=== PATIENT | female | born 1945 | race Caucasian/White ===

== ENCOUNTER 2017-12-12 18:50 | Inpatient (IN) | payer OTHER ==
[~2017-12-12] VITALS: Ht 162.6 cm; Wt 79.6 kg
[~2017-12-12 18:50] MED LIST: ACETAMINOPHEN650 M5 PO; ASPIRIN EC81 M1 PO; ATENOLOL 50 MG50 M1 PO; COUMADIN 5 MG TA5 M1 PO; DICLOFENAC SODI75 M1 PO; DILTIAZEM 24HR240 M1 PO; FISH OIL + D31 EACH PO; FOLGARD TABLET1 EAC1 PO; KCL PO; LASIX 20 MG TAB20 MG PO; LISINOPRIL5 MG PO; SIMVASTATIN10 MG
[2017-12-12 18:51] VITALS: BP 118/51
[2017-12-12] MEDS ORDERED: TOPROL XL25 MG PO (18:58)
[2017-12-12] MEDS ORDERED: ANTIDEPRESSANT (19:02)
[2017-12-12] MEDS ORDERED: LEXAPRO 10 MG T10 MG PO (19:14)
[2017-12-12 19:27] LABS: ABSOLUTE BASOPHILS 0.1 thou/uL (0.0-0.2); ABSOLUTE EOSINOPHILS 0.2 thou/uL (0.0-0.7); ABSOLUTE LYMPHOCYTES 1.9 thou/uL (0.8-5.3); ABSOLUTE MONOCYTES 0.9 thou/uL (0.0-1.2); ABSOLUTE NEUTROPHILS 5.6 thou/uL (1.6-8.1); EOSINOPHILS 2.3 %; HEMOGLOBIN 13.9 gm/dL (12.0-15.0); LYMPHOCYTES 21.9 %; MCH 30.9 pg (26.0-34.0); MCHC 33.1 g/dL (28.0-37.0); MCV 93.3 fL (80.0-100.0); MONOCYTES 10.7 %; MPV 10.8 fl. (7.2-11.1); NUCLEATED RBCS 0 /100WBC; PLATELET COUNT* 154 thou/uL (150-400); POLYS 64.1 %; RBC 4.51 mil/uL (4.20-5.00); RDW-CV 14.4 % (10.5-14.5); WBC 8.7 thou/uL (4.0-11.0)
[2017-12-12 19:33] LABS: CALCIUM 9.1 mg/dL (8.5-10.1); POTASSIUM 3.6 mmol/L (3.5-5.1)
[2017-12-12 19:34] LABS: INR 3.3; PROTIME 31.5 Seconds (9.20-11.50)
[2017-12-12 21:06] VITALS: BP 124/71
[2017-12-12 21:30] VITALS: BP 129/63
[2017-12-13] MEDS ORDERED: LASIX 20 MG TAB20 MG PO (01:16)
[2017-12-13] MEDS ORDERED: COUMADIN 1MG TAB1 M1 PO (01:17)
[2017-12-13 04:42] LABS: MCH 31.2 pg (26.0-34.0); MCHC 33.4 g/dL (28.0-37.0); MCV 93.4 fL (80.0-100.0); MPV 11.3 fl. (7.2-11.1); RBC 4.18 mil/uL (4.20-5.00); RDW-CV 14.6 % (10.5-14.5); WBC 14.2 thou/uL (4.0-11.0)
[2017-12-13 04:46] LABS: INR 3.2; PROTIME 30.4 Seconds (9.20-11.50)
[2017-12-13 09:06] VITALS: BP 124/62
--- NOTE | 2017-12-13 13:52 | EKG ---
[place] [address] ELECTROCARDIOGRAM REPORT Name: JOHN HYDETINA Roc Room: [address] ADM IN .R.#: [id number] Admission: 12/12/17 Attend Phys: Bertha Bland Discharge: Date of : 43 Report #: [id number] THIS REPORT FOR: //name// [facility] ED Test Date: 2017-12-12 Test Time: 19:45:01 Pat Name: OUSMANE HYDE Department: Room: [facility] Gender: F Sodium Chlorite Operator: : 1945 Requested By: Mckinley Norton Order Number: [id number] MD: Selvin Roberts Measurements Intervals [place] Rate: 82 P: MT: QRS: 45 QRSD: 94 T: 3 QT: 396 QTc: 463 Interpretive Statements Atrial fibrillation Low voltage, precordial leads Compared to ECG 02/17/2013 08:30:15 no change Electronically Signed On 12-13-2017 13:52:29 CDT by Selvin Roberts [email or web address] <ELECTRONICALLY SIGNED> By: Selvin Roberts MD, [facility] 12/13/17 1352 44 44 Selvin Roberts MD, FAC /EPI
[2017-12-13 15:04] LABS: INR 3.4; PROTIME 32.1 Seconds (9.20-11.50)
[2017-12-13 15:12] LABS: URINE BILIRUBIN NEGATIVE (Negative); URINE BLOOD NEGATIVE (Negative); URINE CLARITY CLEAR; URINE COLOR YELLOW; URINE GLUCOSE-RANDOM NEGATIVE (Negative); URINE KETONES NEGATIVE (Negative); URINE LEUKOCYTES NEGATIVE (Negative); URINE NITRITE NEGATIVE (Negative); URINE PROTEIN NEGATIVE (Negative); URINE UROBILINOGEN 0.2 E.U./dl (0.2-1.0)
[2017-12-13 15:59] VITALS: BP 127/77
[2017-12-13 20:00] VITALS: BP 137/80
[2017-12-14] VITALS (9 sets, daily range): BP systolic 89–132; BP diastolic 40–75
[2017-12-14 04:22] LABS: ABSOLUTE BASOPHILS 0.1 thou/uL (0.0-0.2); ABSOLUTE LYMPHOCYTES 1.3 thou/uL (0.8-5.3); ABSOLUTE MONOCYTES 1.5 thou/uL (0.0-1.2); ABSOLUTE NEUTROPHILS 9.1 thou/uL (1.6-8.1); BASOPHILS 0.4 %; EOSINOPHILS 0.3 %; HEMATOCRIT 36.5 % (37.0-47.0); HEMOGLOBIN 12.3 gm/dL (12.0-15.0); LYMPHOCYTES 11.2 %; MCH 31.5 pg (26.0-34.0); MCHC 33.8 g/dL (28.0-37.0); MCV 93.1 fL (80.0-100.0); MONOCYTES 12.8 %; MPV 10.9 fl. (7.2-11.1); NUCLEATED RBCS 0 /100WBC; PLATELET COUNT* 136 thou/uL (150-400); POLYS 75.3 %; RBC 3.92 mil/uL (4.20-5.00); RDW-CV 14.7 % (10.5-14.5)
[2017-12-14 04:23] LABS: PROTIME 28.9 Seconds (9.20-11.50)
[2017-12-14 04:46] LABS: CALCIUM 8.2 mg/dL (8.5-10.1); CREATININE 0.8 mg/dL (0.6-1.3); POTASSIUM 3.6 mmol/L (3.5-5.1)
[2017-12-14 07:23] LABS: INR 1.7; PROTIME 16.8 Seconds (9.20-11.50)
[2017-12-14 13:19] LABS: INR 1.8; PROTIME 17.4 Seconds (9.20-11.50)
[2017-12-14 15:58] LABS: HEMATOCRIT 31.6 % (37.0-47.0); HEMOGLOBIN 10.6 gm/dL (12.0-15.0)
[2017-12-15] VITALS (13 sets, daily range): BP systolic 82–118; BP diastolic 38–63
[2017-12-15 03:55] LABS: HEMATOCRIT 25.2 % (37.0-47.0)
[2017-12-15 04:05] LABS: INR 1.8; PROTIME 17.4 Seconds (9.20-11.50)
[2017-12-15 04:06] LABS: HEMOGLOBIN 8.3 gm/dL (12.0-15.0)
[2017-12-15 08:19] LABS: CALCIUM 7.9 mg/dL (8.5-10.1); CREATININE 0.8 mg/dL (0.6-1.3)
[2017-12-15 17:07] LABS: HEMATOCRIT 22.4 % (37.0-47.0); HEMOGLOBIN 7.5 gm/dL (12.0-15.0)
[2017-12-15 23:43] LABS: HEMATOCRIT 23.5 % (37.0-47.0)
[2017-12-16] VITALS: BP 119/64; BP 97/46
[2017-12-16 04:36] LABS: HEMATOCRIT 23.6 % (37.0-47.0); HEMOGLOBIN 7.9 gm/dL (12.0-15.0); MCH 31.7 pg (26.0-34.0); MCHC 33.6 g/dL (28.0-37.0); MCV 94.5 fL (80.0-100.0); MPV 11.1 fl. (7.2-11.1); NUCLEATED RBCS 0 /100WBC; PLATELET COUNT* 109 thou/uL (150-400); RDW-CV 13.9 % (10.5-14.5)
[2017-12-16 04:40] VITALS: BP 109/54
[2017-12-16 04:54] LABS: INR 1.3; PROTIME 12.9 Seconds (9.20-11.50)
[2017-12-16 05:22] LABS: ALBUMIN 2.2 g/dL (3.4-5.0); CALCIUM 7.8 mg/dL (8.5-10.1); CREATININE 0.8 mg/dL (0.6-1.3); POTASSIUM 3.8 mmol/L (3.5-5.1); TOTAL BILIRUBIN 0.9 mg/dL (<0.1-1.0); TOTAL PROTEIN 5.1 g/dL (6.4-8.2)
[2017-12-16 06:34] LABS: ABSOLUTE EOSINOPHILS 0.1 thou/uL (0.0-0.7); ABSOLUTE LYMPHOCYTES 0.5 thou/uL (0.8-5.3); ABSOLUTE MONOCYTES 0.2 thou/uL (0.0-1.2); ABSOLUTE NEUTROPHILS 11.2 thou/uL (1.6-8.1); METAMYELOCYTES 1 %
[2017-12-16 06:35] LABS: ANISOCYTOSIS 1+; PLATELET ESTIMATE ADEQUATE
[2017-12-16 08:00] VITALS: BP 93/46
[2017-12-16 11:07] VITALS: BP 100/37; BP 103/61; BP 104/59; BP 106/58
--- NOTE | 2017-12-16 17:50 | CON ---
[address] [address] CONSULTATION Name: BARRETTOUSMANE Brian Room: [address] IN M.R.#: [id number] Admission: 12/12/17 Attend Phys: Bertha Bland Discharge: Date of : 43 Report #: [id number] THIS REPORT FOR: //name// CC: Pam Mercer DATE OF SERVICE: 12/13/2017 HISTORY OF PRESENT ILLNESS: The patient is a 71-year-old white female who I was asked to see in the hospital today because of atrial fibrillation. The history is obtained from the patient as well as some old records. The patient presented several years ago with shortness of breath. She was found to be in atrial fibrillation. She was seen at that time by Dr. Helms. Echocardiogram showed ejection fraction of 55% with a dilated left atrium, moderate mitral regurgitation, evidence of pulmonary hypertension and mild aortic insufficiency. She underwent a stress test that suggested apical ischemia. Dr. Helms recommended heart catheterization that was performed in 12/2012. She actually underwent a right and left heart catheterization. Results showed left ventricular end diastolic pressure of 20. Pulmonary pressure is 44. Ejection fraction of 50%, moderate mitral regurgitation. No evidence of mitral stenosis. Coronary angiography showed normal coronary arteries. She was felt to have persistent atrial fibrillation recommended rate control and chronic anticoagulation with warfarin. The patient has been followed by my partner, Dr. Peng since that time. She last saw Dr. Peng in July 2017 when she was doing well. She does not exercise on a regular basis. However, the patient denies recent chest pain, shortness of breath, palpitations, syncope, bleeding. She does have her INR checked frequently. The patient was doing well until yesterday, she was home in her kitchen when she tripped over her cat. She then felt pain in the right hip. Ambulance brought her here to [place], she was found to have a right hip fracture. She is now scheduled for hip surgery. I was asked to see her for preop evaluation. PAST MEDICAL HISTORY: Otherwise, significant for bilateral knee surgery, tonsillectomy, tubal ligation. She has a history of hypertension and hyperlipidemia. She apparently had screening in my office last summer that showed mild carotid plaque. CURRENT MEDICATIONS: Include Lasix for occasional edema, metoprolol, potassium, simvastatin, and warfarin. ALLERGIES: SHE HAS A PREVIOUS INTOLERANCE TO CONTRAST. FAMILY HISTORY: Her grandfather had a heart attack. SOCIAL HISTORY: She is . She [place] [address] CONSULTATION Name: OUSMANE HYDE Room: [address] IN .R.#: [id number] Admission: 12/12/17 Attend Phys: Bertha Bland Discharge: Date of : 43 Report #: [id number] No smoking. Rarely drinks alcohol. REVIEW OF SYSTEMS: She has had no history of stroke, asthma, peptic ulcer disease, liver disease, kidney disease, cancer, psychiatric illness, chronic skin condition. PHYSICAL EXAMINATION: GENERAL: Revealed an elderly female, lying in bed. She appeared in no distress. VITAL SIGNS: She had a blood pressure of 120/70, pulse was 80, she was afebrile. HEENT: She was anicteric, conjunctiva pink. Mucous membranes were moist. NECK: Veins nondistended. No carotid bruits. Neck was supple. CHEST: Clear to auscultation. CARDIOVASCULAR: Irregular rhythm. No significant murmur. ABDOMEN: Soft, nontender. EXTREMITIES: Had no edema. Dorsalis pedis pulse cannot be palpated. SKIN: Cool and dry. NEUROLOGIC: Nonfocal. Her ECG done yesterday shows atrial fibrillation, controlled ventricular response rate, poor R-wave progression. Her workup yesterday, she had portable chest x-ray in the Emergency Room that showed normal heart size, few granulomas. CT scan of the head without contrast showed only atrophy, microvascular changes. LABORATORY DATA: Sodium 141, potassium 3.6, creatinine 1.0, glucose 115. Troponin 0.06. White blood cell count 14.2, hemoglobin 13.0. IMPRESSION AND RECOMMENDATIONS: 1. Permanent atrial fibrillation. Rate controlled with a beta leti. I would hold anticoagulation at this time. Her INR on admission yesterday was 3.3. 2. Hypertension. The patient has been on a beta leti. 3. Hyperlipidemia. The patient is on a statin drug. 4. Mild carotid plaque. Recommend repeat Doppler next year. 5. Hip fracture. The patient is scheduled for surgery. The patient has no cardiac contraindication to surgery. She will need to await normalization of her INR prior to surgery. I would then resume warfarin as soon as possible after the surgery to prevent thromboembolic events from her permanent atrial fibrillation. <ELECTRONICALLY SIGNED> By: Selvin Roberts MD, FACC 12/16/17 1750 1036 [id number] Roberts MD, FACC /nt
[2017-12-16 20:50] VITALS: BP 120/58
[2017-12-17 00:31] VITALS: BP 119/64
[2017-12-17 04:00] VITALS: BP 93/49
[2017-12-17 04:45] LABS: INR 1.2; PROTIME 11.6 Seconds (9.20-11.50)
[2017-12-17 04:54] LABS: ABSOLUTE EOSINOPHILS 0.2 thou/uL (0.0-0.7); ABSOLUTE LYMPHOCYTES 1.5 thou/uL (0.8-5.3); ABSOLUTE MONOCYTES 1.7 thou/uL (0.0-1.2); ABSOLUTE NEUTROPHILS 9.5 thou/uL (1.6-8.1); BASOPHILS 0.3 %; EOSINOPHILS 1.6 %; HEMATOCRIT 24.5 % (37.0-47.0); HEMOGLOBIN 8.3 gm/dL (12.0-15.0); LYMPHOCYTES 11.8 %; MCH 31.5 pg (26.0-34.0); MCHC 33.8 g/dL (28.0-37.0); MCV 93.3 fL (80.0-100.0); MONOCYTES 13.4 %; MPV 11.7 fl. (7.2-11.1); NUCLEATED RBCS 0 /100WBC; PLATELET COUNT* 136 thou/uL (150-400); POLYS 72.9 %; RBC 2.63 mil/uL (4.20-5.00); RDW-CV 14.7 % (10.5-14.5)
[2017-12-17 05:11] LABS: ALBUMIN 2.1 g/dL (3.4-5.0); CALCIUM 7.8 mg/dL (8.5-10.1); CREATININE 0.8 mg/dL (0.6-1.3); POTASSIUM 4.5 mmol/L (3.5-5.1); TOTAL BILIRUBIN 0.7 mg/dL (<0.1-1.0); TOTAL PROTEIN 5.1 g/dL (6.4-8.2)
[2017-12-17 08:40] VITALS: BP 95/55
[2017-12-17] MEDS ORDERED: LOVENOX40 MG/0.4 SUBQ (08:48)
[2017-12-17] MEDS ORDERED: MILK OF MA400 MG/5 M PO (08:49)
[2017-12-17] MEDS ORDERED: MIRALAX17 GM PO (08:55)
[2017-12-17] MEDS ORDERED: OXYCODONE HCL5 MG PO (08:56)
[2017-12-17 16:12] VITALS: BP 99/63
[2017-12-18 00:46] VITALS: BP 115/58
[2017-12-18 04:05] LABS: INR 1.2; PROTIME 11.8 Seconds (9.20-11.50)
[2017-12-18 04:39] VITALS: BP 115/64
[2017-12-18 08:14] VITALS: BP 128/59
[2017-12-18 13:53] VITALS: BP 93/48
[2017-12-18 16:07] VITALS: BP 121/43
[2017-12-18 20:00] VITALS: BP 114/59
[2017-12-19 04:00] VITALS: BP 111/55
[2017-12-19 04:52] LABS: INR 1.5; PROTIME 14.9 Seconds (9.20-11.50)
[2017-12-19 05:02] LABS: ABSOLUTE BASOPHILS 0.1 thou/uL (0.0-0.2); ABSOLUTE EOSINOPHILS 0.2 thou/uL (0.0-0.7); ABSOLUTE LYMPHOCYTES 1.9 thou/uL (0.8-5.3); ABSOLUTE MONOCYTES 1.4 thou/uL (0.0-1.2); ABSOLUTE NEUTROPHILS 7.8 thou/uL (1.6-8.1); BASOPHILS 0.8 %; HEMATOCRIT 24.9 % (37.0-47.0); HEMOGLOBIN 8.4 gm/dL (12.0-15.0); LYMPHOCYTES 16.9 %; MCH 31.4 pg (26.0-34.0); MCHC 33.7 g/dL (28.0-37.0); MCV 93.2 fL (80.0-100.0); MPV 10.9 fl. (7.2-11.1); NUCLEATED RBCS 2 /100WBC; POLYS 68.3 %; RBC 2.67 mil/uL (4.20-5.00); RDW-CV 14.7 % (10.5-14.5); WBC 11.4 thou/uL (4.0-11.0)
[2017-12-19 05:08] LABS: PLATELET COUNT* 232 thou/uL (150-400)
[2017-12-19 05:11] LABS: ALBUMIN 2.2 g/dL (3.4-5.0); CREATININE 0.7 mg/dL (0.6-1.3); POTASSIUM 4.4 mmol/L (3.5-5.1); TOTAL PROTEIN 4.9 g/dL (6.4-8.2)
[2017-12-19 08:30] VITALS: BP 124/41
[2017-12-19 16:03] VITALS: BP 104/52
[2017-12-19 20:00] VITALS: BP 115/53
[2017-12-20 04:35] LABS: INR 2.1; PROTIME 20.7 Seconds (9.20-11.50)
[2017-12-20 08:28] VITALS: BP 103/64
[2017-12-20 13:48] VITALS: BP 103/64
[2017-12-20] MEDS ORDERED: DIGOXIN125 MCG PO (14:03)
--- NOTE | 2017-12-23 15:04 | CON ---
[address] [address] CONSULTATION Name: OUSMANE HYDE Room: [address] IN .R.#: [id number] Admission: 12/12/17 Attend Phys: Bertha Bland Discharge: 12/20/17 Date of : 43 Report #: [id number] THIS REPORT FOR: //name// CC: Pam Mercer REASON FOR CONSULTATION: Evaluation and recommendations regarding post-acute rehabilitation. HISTORY OF PRESENT ILLNESS: This is a 71-year-old female who had a fall from sustaining a hip fracture, no loss of consciousness, presented with intractable pain, was evaluated. Orthopedic Surgery was consulted and she was found to have a comminuted right intertrochanteric hip fracture. She does have a history of atrial fibrillation on Coumadin with a stable INR. She is status post cephalomedullary nail fixing with a right hip fracture on 12/14/2017 in the postoperative period. She has seen occupational therapy and her bed mobility is dependent and her bathing is minimum assistance. She is in physical therapy and she has been max assist of 2. She has ambulated 3-4 feet. She was previously independent with all activities of daily living. She has 6 steps to enter her house and 5 steps to enter the second floor where she has a bedroom with a bathroom. PAST MEDICAL HISTORY: Knee replacement in 2003, exploratory chest surgery, hypertension, congestive heart failure, atrial fibrillation and tubal ligation. MEDICATIONS: Reviewed and are available in the MAR. SIGNIFICANT FAMILY HISTORY: Heart disease. SOCIAL HISTORY: No tobacco, alcohol or recreational drug use. REVIEW OF SYSTEMS: A 14-point review of systems is done and is negative except as mentioned in HPI, specifically no fever, chest pain, shortness of breath, abdominal pain or distention. PHYSICAL EXAMINATION: GENERAL: Alert, oriented, in no apparent distress. VITAL SIGNS: Reviewed and are stable. HEENT: Head: Atraumatic, normocephalic. Pupils equal, round, reactive. ABDOMEN: Soft, nontender, nondistended. NEUROLOGIC: Cranial nerves 2 through 12 are grossly intact with no focal neuro deficit, 5/5 strength in the bilateral upper and lower extremities. SKIN: Warm and dry. No rashes or lesions noted. ASSESSMENT: 1. Status post right hip fracture with cephalomedullary nailing. 2. Alterations in activities of daily living [place] [address] CONSULTATION Name: JOHN HYDEKATHE Brian Room: [address]#: [id number] Admission: 12/12/17 Attend Phys: Bertha Bland Discharge: 12/20/17 Date of : 43 Report #: [id number] level of function. 3. Multiple medical comorbidities including atrial fibrillation with chronic anticoagulation. PLAN: 1. Continue with physical and occupational therapy. 2. Recommend potential acute inpatient rehabilitation due to her level of debility in the postoperative period. 3. We will follow her daily until her discharge with further recommendations as needed. <ELECTRONICALLY SIGNED> By: Elida Abraham DO 12/23/17 1504 1313 [id number] Abraham DO /nt
--- NOTE | 2018-01-09 11:54 | OP ---
[address] [address] OPERATIVE REPORT Name: OUSMANE HYDE Room: [address]#: [id number] Admission: 12/12/17 Attend Phys: Bertha Bland Discharge: 12/20/17 Date of : 43 Report #: [id number] THIS REPORT FOR: //name// CC: Pam Mercer DICTATED BY: Joel Cervantes PREOPERATIVE DIAGNOSIS: Right intertrochanteric hip fracture. POSTOPERATIVE DIAGNOSIS: Right intertrochanteric hip fracture. PROCEDURE: Cephalomedullary nail fixation of right hip fracture. SURGEON: Sonido Roman DO OPERATIONS ANALYST: Erick Andrade DO SECOND ASSIST: Joel Cervantes DO ANESTHESIA: General. ESTIMATED BLOOD LOSS: 100 mL. PREOP ANTIBIOTICS: 2 grams Ancef IV prior to incision. SPECIMENS: None. DRAINS: None. COMPLICATIONS: None. CONDITION: The patient is stable to PACU. IMPLANTS: [place] long gamma nail measuring 11 x 380 mm in length, 125 degree angle with a 95 mm lag screw, locking screw and a distal locking screw measuring 42.5 mm. INDICATIONS: The patient is a pleasant 71-year-old female who sustained a fall onto right side 2 days ago. She was diagnosed with a right intertrochanteric hip fracture with extension into the subtrochanteric area. Her INR was exceptionally high due to use of warfarin for atrial fibrillation and this was treated with fresh frozen plasma, which brought the INR down to an acceptable level for surgery. We recommended cephalomedullary nail fixation of the right hip fracture and we discussed the risks, benefits, complications, alternatives and indications to this including but not limited to bleeding, infection, neurovascular injury, continued pain, need for further surgery, DVT, PE and [facility] [address] [place] [address] OPERATIVE REPORT Name: BARRETTOUSMANE F Room: [address]#: [id number] Admission: 12/12/17 Attend Phys: Bertha Bland Discharge: 12/20/17 Date of : 43 Report #: [id number] inherent risks of anesthesia and she is willing to proceed. Consent is available on the chart. The patient also had a previous right total knee arthroplasty in 2000. DESCRIPTION OF PROCEDURE: The patient was seen in the preoperative holding area and the operative site initialed by surgeon. She was brought back to operative suite, placed on well-padded table in supine position. General anesthesia was induced. She was then positioned on the fracture table with the right leg in a well-padded traction boot and the left leg positioned in the Well-Leg escobar, which was well padded. Arms were secured with good padding. The right hip was sterilely prepped and draped in normal fashion. Timeout was performed in usual fashion. All in attendance were in agreement. The leg was externally rotated, pulled with traction and internally rotated for reduction maneuver. Intraoperative fluoroscopy yielded excellent reduction of the fracture. A 10 blade scalpel was used to make an incision just proximal to the greater trochanter. This was taken down through the skin and the IT band. Guide pin was then used for starting point on the greater trochanter. Intraoperative fluoroscopy was utilized for optimal starting point on the AP and lateral views. The guidewire was then advanced to the level of the lesser trochanter. Soft tissue protector was placed and an opening reamer was then utilized through the greater trochanter to the level of lesser trochanter. Guidepin was then removed and a ball tip guidewire was then advanced the full length of the femur intramedullary to the level of the superior flange of the total knee replacement. This was done under fluoroscopic guidance. The guidewire was then measured to 380 mm. Sequential reaming was then performed and the canal was reamed to a size 13 mm. The long gamma nail was then advanced over the wire to satisfactory level. The ball-tipped guidewire was then removed. Under fluoroscopic guidance, the level of the lag screw was determined and held in position. A 10 blade scalpel was then used to make a slightly distal incision for lag screw insertion through the skin and the IT band. Trocar was then advanced through the aiming arm to the level of the lateral cortex. The guidepin was then advanced under fluoroscopic guidance roughly in the center of the femoral neck on AP and lateral views. This was advanced into subchondral bone and measured. The reamer was set appropriately and the lag screw hole was reamed. A 95 mm lag screw was then advanced over the guidepin with excellent purchase. The locking bolt was then inserted through the proximal aspect of the aiming arm and the lag screw was locked into place statically. Attention was then turned to distal aspect of the nail at the level of the knee and a 10 blade scalpel was used to make incision through the skin and the IT band laterally. A drill hole was then placed through the static locking hole distally utilizing a perfect circles technique. This was measured and a 42.5 mm screw was advanced through the nail bicortically. Final x-rays were obtained showing excellent alignment of the fracture and implant. All incisions were thoroughly irrigated with normal saline and the IT band proximally was closed with a #1 Vicryl in [id number] fashion and the subcutaneous tissue closed with a 2-0 Vicryl in simple inverted interrupted fashion followed by keri on the [place] [address] OPERATIVE REPORT Name: BARRETTOUSMANE F Room: [address] IN .R.#: [id number] Admission: 12/12/17 Attend Phys: Bertha Bland Discharge: 12/20/17 Date of : 43 Report #: [id number] incisions. Dressings were placed in the form of Mepilex AG dressing, 4 x 4s, ABDs and tape. Sponge and needle counts were correct x 2. The patient was awoken and brought to PACU in a stable fashion. She tolerated the procedure well. <ELECTRONICALLY SIGNED> By: Sonido Roman DO 01/09/18 1154 1042 [id number] Roman DO /nt
== END 2017-12-20 15:09 | DRG 481 ==
LOC: M.ERS 18:50 → M.TBA-ER 20:03 → M.ORTHSURG 20:03
PROVIDERS: Emergency Medicine Emergency Medical Services; Internal Medicine; Orthopaedic Surgery; ADMIT Internal Medicine
DX: S72.141A Displaced intertrochanteric fracture of right femur, initial encounter for closed fracture (principal); R65.10 Systemic inflammatory response syndrome (SIRS) of non-infectious origin without acute organ dysfunction; I50.32 Chronic diastolic (congestive) heart failure; D62 Acute posthemorrhagic anemia; I11.0 Hypertensive heart disease with heart failure; I48.2 Chronic atrial fibrillation; E78.5 Hyperlipidemia, unspecified; I65.29 Occlusion and stenosis of unspecified carotid artery; Z79.01 Long term (current) use of anticoagulants; M19.90 Unspecified osteoarthritis, unspecified site; I95.9 Hypotension, unspecified; W18.39XA Other fall on same level, initial encounter; Y93.73 Activity, racquet and hand sports; Y92.89 Other specified places as the place of occurrence of the external cause; Y99.8 Other external cause status; Z91.041 Radiographic dye allergy status; Z82.49 Family history of ischemic heart disease and other diseases of the circulatory system; Z79.899 Other long term (current) drug therapy; Z96.653 Presence of artificial knee joint, bilateral

== ENCOUNTER 2018-01-16 11:32 | Emergency (ER) | payer OTHER ==
[~2018-01-16] VITALS: Ht 162.6 cm; Wt 78.0 kg
[~2018-01-16 11:32] MED LIST changes: +ANTIDEPRESSANT; +COUMADIN 1MG TAB1 M1 PO; +DIGOXIN125 MCG PO; +LEXAPRO 10 MG T10 MG PO; +LOVENOX40 MG/0.4 SUBQ; +MILK OF MA400 MG/5 M PO; +MIRALAX17 GM PO; +OXYCODONE HCL5 MG PO; +TOPROL XL25 MG PO
[2018-01-16] MEDS ORDERED: VOLTAREN GEL 1100 G2 TOP (11:57)
[2018-01-16] MEDS ORDERED: ULTRAM50 MG PO (11:57)
[2018-01-16 12:40] LABS: ABSOLUTE BASOPHILS 0.1 thou/uL (0.0-0.2); ABSOLUTE EOSINOPHILS 0.2 thou/uL (0.0-0.7); ABSOLUTE LYMPHOCYTES 1.2 thou/uL (0.8-5.3); ABSOLUTE MONOCYTES 1.4 thou/uL (0.0-1.2); BASOPHILS 1.1 %; EOSINOPHILS 2.5 %; HEMATOCRIT 36.9 % (37.0-47.0); HEMOGLOBIN 11.8 gm/dL (12.0-15.0); LYMPHOCYTES 11.6 %; MCH 30.1 pg (26.0-34.0); MCHC 31.9 g/dL (28.0-37.0); MCV 94.5 fL (80.0-100.0); MONOCYTES 13.9 %; MPV 10.2 fl. (7.2-11.1); NUCLEATED RBCS 0 /100WBC; PLATELET COUNT* 291 thou/uL (150-400); POLYS 70.9 %; RDW-CV 17.7 % (10.5-14.5); WBC 9.9 thou/uL (4.0-11.0)
[2018-01-16 12:47] LABS: CALCIUM 8.7 mg/dL (8.5-10.1); CREATININE 0.7 mg/dL (0.6-1.3)
[2018-01-16 12:48] LABS: INR 3.4; PROTIME 32.6 Seconds (9.20-11.50)
[2018-01-16 12:51] LABS: ALBUMIN 3.2 g/dL (3.4-5.0); TOTAL BILIRUBIN 1.3 mg/dL (<0.1-1.0); TOTAL PROTEIN 7.2 g/dL (6.4-8.2)
[2018-01-16 14:26] VITALS: BP 131/58
== END 2018-01-16 14:27 | disposition home or self-care (01) ==
LOC: M.ERS 11:32
PROVIDERS: Nurse Practitioner Family
DX: S70.01XA Contusion of right hip, initial encounter (principal); R79.1 Abnormal coagulation profile; I11.0 Hypertensive heart disease with heart failure; I50.9 Heart failure, unspecified; I48.91 Unspecified atrial fibrillation; Z91.041 Radiographic dye allergy status; Z88.7 Allergy status to serum and vaccine; Z88.8 Allergy status to other drugs, medicaments and biological substances; X58.XXXA Exposure to other specified factors, initial encounter; Y93.89 Activity, other specified; Y92.89 Other specified places as the place of occurrence of the external cause; Y99.8 Other external cause status

== ENCOUNTER → 2018-01-30 | Outpatient (CLI) | payer OTHER ==
[~2018-01-30] MED LIST changes: +AUGMENTIN 875-1 EACH PO; +BACTRIM DS TAB1 EACH PO; +CARDIZEM CD180 MG PO; +DIFLUCAN200 MG PO; +HYDROCODONE-AP1 EAC6 PO; +KLOR-CON 1010 MEQ PO; +LEVALBUTER1.25 MG/0. INH; +LOPRESSOR50 PO; +MUCINEX600 MG PO; +NYAMYC15 GM TOP; +PROTONIX40 M1 PO; +ULTRAM50 MG PO; +VOLTAREN GEL 1100 G2 TOP; +XARELTO20 MG PO
== END ==
LOC: M.WC 08:50
DX: S70.01XA Contusion of right hip, initial encounter (principal); S71.031A Puncture wound without foreign body, right hip, initial encounter; I11.0 Hypertensive heart disease with heart failure; I50.9 Heart failure, unspecified; I48.91 Unspecified atrial fibrillation; X58.XXXA Exposure to other specified factors, initial encounter; Y93.89 Activity, other specified; Y92.89 Other specified places as the place of occurrence of the external cause; Y99.8 Other external cause status

== ENCOUNTER → 2018-02-05 | Outpatient (CLI) | payer OTHER | LOC: M.WC 09:00 | DX: T81.89XD Other complications of procedures, not elsewhere classified, subsequent encounter (principal); L76.32 Postprocedural hematoma of skin and subcutaneous tissue following other procedure; I48.2 Chronic atrial fibrillation; E78.2 Mixed hyperlipidemia; M15.0 Primary generalized (osteo)arthritis; I11.0 Hypertensive heart disease with heart failure; I50.9 Heart failure, unspecified; Z68.27 Body mass index [BMI] 27.0-27.9, adult; Y83.8 Other surgical procedures as the cause of abnormal reaction of the patient, or of later complication, without mention of misadventure at the time of the procedure ==

== ENCOUNTER → 2018-02-06 | Outpatient (CLI) | payer OTHER | LOC: M.WC 11:00 | DX: T81.89XD Other complications of procedures, not elsewhere classified, subsequent encounter (principal); L76.32 Postprocedural hematoma of skin and subcutaneous tissue following other procedure; I11.0 Hypertensive heart disease with heart failure; I50.9 Heart failure, unspecified; I48.2 Chronic atrial fibrillation; E78.2 Mixed hyperlipidemia; M15.0 Primary generalized (osteo)arthritis; Z68.27 Body mass index [BMI] 27.0-27.9, adult; Z96.659 Presence of unspecified artificial knee joint; Y83.8 Other surgical procedures as the cause of abnormal reaction of the patient, or of later complication, without mention of misadventure at the time of the procedure ==

== ENCOUNTER → 2018-02-13 | Outpatient (CLI) | payer OTHER | LOC: M.WC 04:39 | DX: T81.89XD Other complications of procedures, not elsewhere classified, subsequent encounter (principal); L76.32 Postprocedural hematoma of skin and subcutaneous tissue following other procedure; I48.2 Chronic atrial fibrillation; E78.2 Mixed hyperlipidemia; M15.0 Primary generalized (osteo)arthritis; I11.0 Hypertensive heart disease with heart failure; I50.9 Heart failure, unspecified; Z68.27 Body mass index [BMI] 27.0-27.9, adult; Y83.8 Other surgical procedures as the cause of abnormal reaction of the patient, or of later complication, without mention of misadventure at the time of the procedure ==

== ENCOUNTER → 2018-02-20 | Outpatient (CLI) | payer OTHER | LOC: M.WC 00:56 | DX: T81.89XD Other complications of procedures, not elsewhere classified, subsequent encounter (principal); I11.0 Hypertensive heart disease with heart failure; I50.9 Heart failure, unspecified; I48.2 Chronic atrial fibrillation; E78.2 Mixed hyperlipidemia; L76.32 Postprocedural hematoma of skin and subcutaneous tissue following other procedure; M15.0 Primary generalized (osteo)arthritis; Z68.27 Body mass index [BMI] 27.0-27.9, adult; Y83.8 Other surgical procedures as the cause of abnormal reaction of the patient, or of later complication, without mention of misadventure at the time of the procedure ==

== ENCOUNTER → 2018-02-27 | Outpatient (CLI) | payer OTHER | LOC: M.WC 02:24 | DX: T81.89XD Other complications of procedures, not elsewhere classified, subsequent encounter (principal); I11.0 Hypertensive heart disease with heart failure; I50.9 Heart failure, unspecified; E78.2 Mixed hyperlipidemia; I48.2 Chronic atrial fibrillation; M15.0 Primary generalized (osteo)arthritis; Z96.659 Presence of unspecified artificial knee joint; Z68.27 Body mass index [BMI] 27.0-27.9, adult; Y83.8 Other surgical procedures as the cause of abnormal reaction of the patient, or of later complication, without mention of misadventure at the time of the procedure ==

== ENCOUNTER → 2018-03-03 | Outpatient (CLI) | payer OTHER | LOC: M.WC 06:29 | DX: T81.89XD Other complications of procedures, not elsewhere classified, subsequent encounter (principal); I11.0 Hypertensive heart disease with heart failure; I50.9 Heart failure, unspecified; I48.2 Chronic atrial fibrillation; L76.32 Postprocedural hematoma of skin and subcutaneous tissue following other procedure; E78.2 Mixed hyperlipidemia; M15.0 Primary generalized (osteo)arthritis; Z68.27 Body mass index [BMI] 27.0-27.9, adult; Z96.659 Presence of unspecified artificial knee joint; Y83.8 Other surgical procedures as the cause of abnormal reaction of the patient, or of later complication, without mention of misadventure at the time of the procedure ==

== ENCOUNTER 2018-03-06 15:05 | Inpatient (IN) | payer OTHER ==
[~2018-03-06] VITALS: Ht 162.6 cm; Wt 78.5 kg
[~2018-03-06 15:05] MED LIST changes: -AUGMENTIN 875-1 EACH PO; -BACTRIM DS TAB1 EACH PO; -CARDIZEM CD180 MG PO; -DIFLUCAN200 MG PO; -HYDROCODONE-AP1 EAC6 PO; -KLOR-CON 1010 MEQ PO; -LEVALBUTER1.25 MG/0. INH; -LOPRESSOR50 PO; -MUCINEX600 MG PO; -NYAMYC15 GM TOP; -PROTONIX40 M1 PO; -XARELTO20 MG PO
[2018-03-06 15:11] VITALS: BP 121/70
[2018-03-06] MEDS ORDERED: LOPRESSOR50 PO (15:19)
[2018-03-06] MEDS ORDERED: XARELTO20 MG PO (15:19)
[2018-03-06] MEDS ORDERED: BACTRIM DS TAB1 EACH PO (15:19)
[2018-03-06] MEDS ORDERED: KLOR-CON 1010 MEQ PO (15:19)
[2018-03-06 15:43] LABS: HEMATOCRIT 43.7 % (37.0-47.0); MCH 28.6 pg (26.0-34.0); MCV 89.4 fL (80.0-100.0); MPV 11.1 fl. (7.2-11.1); NUCLEATED RBCS 0 /100WBC; PLATELET COUNT* 169 thou/uL (150-400); RBC 4.89 mil/uL (4.20-5.00); RDW-CV 16.9 % (10.5-14.5); WBC 15.9 thou/uL (4.0-11.0)
[2018-03-06 15:48] LABS: INR 1.5; PROTIME 14.8 Seconds (9.20-11.50)
[2018-03-06 15:49] LABS: ANION GAP 12 mmol/L (7-16); BUN 24 mg/dL (7-18); CALCIUM 9.3 mg/dL (8.5-10.1); CHLORIDE 96 mmol/L (98-107); CO2 23 mmol/L (21-32); CREATININE 1.5 mg/dL (0.6-1.3); GLUCOSE 161 mg/dL (70-99); POTASSIUM 4.1 mmol/L (3.5-5.1); SODIUM 131 mmol/L (136-145)
[2018-03-06 15:55] LABS: ALBUMIN 3.6 g/dL (3.4-5.0); ALKALINE PHOSPHATASE 143 U/L (46-116); LIPASE 85 U/L (73-393); SGOT 116 U/L (15-37); SGPT 85 U/L (30-65); TOTAL BILIRUBIN 0.5 mg/dL (<0.1-1.0); TOTAL PROTEIN 8.4 g/dL (6.4-8.2); TROPONIN-I LEVEL <0.06 ng/mL (<0.06)
--- NOTE | 2018-03-06 16:08 | NUR ---
PHONE CALL RECEIVED FROM WOUND CARE NURSE STATES THAT PT'S CAN BE ABRUPT, GETS FUSSY, AND HAS BEEN TURNING OFF PT'S WOUND VAC AT WILL. IF WOUND CARE NURSE IS NEEDED, SHE LEAVES WORK AT 4:30. WOUND CARE NURSES NAME IS SELENA. PHYSICIAN NOTIFIED.
[2018-03-06 16:14] LABS: ABSOLUTE LYMPHOCYTES 1.1 thou/uL (0.8-5.3); ABSOLUTE MONOCYTES 0.5 thou/uL (0.0-1.2); ABSOLUTE NEUTROPHILS 14.3 thou/uL (1.6-8.1); PLATELET ESTIMATE ADEQUATE
[2018-03-06 18:04] VITALS: BP 111/51
[2018-03-06 18:59] VITALS: BP 110/72
--- NOTE | 2018-03-06 20:00 | NUR ---
ADMITTED TO ROOM AT 1845. RECEIVED REPORT AND ASSUMED CARE OF PT AT 1900. AT BEDSIDE. WOUND VAC NOTED TO RT HIP, HOME SETTINGS, DRSG DRY AND INTACT. DID NOT PHOTOGRAPH WOUND AT THIS TIME DUE TO WOUND VAC BEING ON SECURELY. C/O NAUSEA WITHOUT EMESIS BUT ASKING TO KEEP CONTAINER CLOSE BY. TELEMETRY ON SHOWING A-FIB WITH RATE INTO 130'S. SEE ADMISSION ASSESSMENT AND HX. WILL CONT TO MONITOR AND ASSIST NEEDED.
[2018-03-07] VITALS: BP 98/64
[2018-03-07 04:00] VITALS: BP 115/46
[2018-03-07 04:51] LABS: HEMATOCRIT 40.5 % (37.0-47.0); HEMOGLOBIN 13.1 gm/dL (12.0-15.0); MCH 28.7 pg (26.0-34.0); MCHC 32.2 g/dL (28.0-37.0); MCV 88.9 fL (80.0-100.0); MPV 11.1 fl. (7.2-11.1); RBC 4.56 mil/uL (4.20-5.00); RDW-CV 16.8 % (10.5-14.5); WBC 17.6 thou/uL (4.0-11.0)
[2018-03-07 05:02] LABS: ALBUMIN 3.2 g/dL (3.4-5.0); CALCIUM 8.6 mg/dL (8.5-10.1); CREATININE 1.3 mg/dL (0.6-1.3); MAGNESIUM 1.9 mg/dL (1.8-2.4); POTASSIUM 4.2 mmol/L (3.5-5.1); TOTAL BILIRUBIN 0.8 mg/dL (<0.1-1.0); TOTAL PROTEIN 6.8 g/dL (6.4-8.2)
--- NOTE | 2018-03-07 06:46 | NUR ---
AWAKE ALL NIGHT. NAUSEA CONT WITHOUT EMESIS. HAVING SM MUCOUSY GREEN STOOLS. TELEMETRY SHOWING A-FIB WITH RATE INTO 110'S. WOUND VAC FUNCTIONING. NO CHANGE IN ASSESSMENT. HS GOALS NOT ACHEIVED FOR REST AND COMFORT. HOURLY ROUNDING OBSERVED.
[2018-03-07 08:00] VITALS: BP 96/62
[2018-03-07 12:00] VITALS: BP 109/65
--- NOTE | 2018-03-07 12:00 | EKG ---
[place] [address] ELECTROCARDIOGRAM REPORT Name: OUSMANE HYDE Room: [address] IN [facility]#: [id number] Admission: 03/06/18 Attend Phys: Navya Mercedes MD Discharge: Date of : 43 Report #: [id number] THIS REPORT FOR: //name// [facility] ED Test Date: 2018-03-06 Test Time: 15:41:54 Pat Name: OUSAMNE HYDE Department: Room: Gender: Quality Assurance Monitor Body: Janessa ECHEVRARIA : 1945 Requested By: Pam Willams Order Number: [id number] : Selvin Roberts Measurements Intervals [place] Rate: 116 P: MD: QRS: 36 QRSD: 110 T: 2 QT: 345 QTc: 480 Interpretive Statements Atrial fibrillation Borderline T abnormalities, anterior leads Borderline prolonged QT interval Compared to ECG 12/12/2017 19:45:01 no change Electronically Signed On 03-07-2018 11:59:59 CDT by Selvin Roberts [email or web address] <ELECTRONICALLY SIGNED> By: Selvin Roberts MD, [facility] 03/07/18 1159 1541 1541 Selvin Roberts MD, [facility] /EPI
[2018-03-07 12:11] LABS: URINE BILIRUBIN NEGATIVE (Negative); URINE BLOOD NEGATIVE (Negative); URINE CLARITY CLEAR; URINE COLOR YELLOW; URINE GLUCOSE-RANDOM NEGATIVE (Negative); URINE KETONES NEGATIVE (Negative); URINE LEUKOCYTES NEGATIVE (Negative); URINE NITRITE NEGATIVE (Negative); URINE PROTEIN TRACE (Negative); URINE SPECIFIC GRAVITY >= 1.030 (1.005-1.030); URINE UROBILINOGEN 0.2 E.U./dl (0.2-1.0)
--- NOTE | 2018-03-07 13:36 | CON ---
[address] [address] CONSULTATION Name: OUSMANE HYDE Room: [address] IN .R.#: [id number] Admission: 03/06/18 Attend Phys: Navya Mercedes MD Discharge: Date of : 43 Report #: [id number] THIS REPORT FOR: //name// CC: Pam Mercedes DATE OF SERVICE: 03/07/2018 Infectious Disease Consultation DATE OF ADMISSION: 03/06/2018 ATTENDING PHYSICIAN: Navya Mercedes MD REASON FOR EVALUATION: Fevers with chronic draining sinus associated with the right hip repair complicated by hematoma. HISTORY OF PRESENT ILLNESS: This is a 72-year-old who was admitted in November 2017 with a fall resulting in a right intertrochanteric hip fracture, underwent cephalomedullary nail fixation. Postop course was complicated by a subcutaneous hematoma. This left partial incisional dehiscence that continues to drain was initially referred to the wound care center and underwent initial evaluation, subsequently had wound VAC placed. She notes there is no significant change overall. Over the course of the last few days, she had developed some low-grade temperature elevations, some nausea with emesis. She has some loose stools. Does have a cough as well, felt perhaps there was increasing inflammation associated with the local site. Evaluation shown to have leukocytosis, lactic acidemia, level of 3.2. Chest x-ray was unremarkable. CT of the pelvis did show soft tissue defect with thickening and straining without clear fluid collection associated with the site. She is not encephalopathic. Also, she does note she had been mildly confused. She was started empirically on broad spectrum therapy with piperacillin and tazobactam. ALLERGIES: Listed to IODINE, CONTRAST. CURRENT MEDICATIONS: Include furosemide, pantoprazole, Bactrim, rivaroxaban, guaifenesin, Zosyn, metoprolol, diltiazem, tramadol. PAST MEDICAL HISTORY: Atrial fibrillation, history of cardiomyopathy with congestive heart failure, hypertension, knee replacements. SOCIAL HISTORY: Nonsmoker, occasional ethanol. FAMILY HISTORY: Noncontributory. REVIEW OF SYSTEMS: As above. Denies [place] [address] CONSULTATION Name: OUSMANE HYDE Room: [address]#: [id number] Admission: 03/06/18 Attend Phys: Navya Mercedes MD Discharge: Date of : 43 Report #: [id number] PHYSICAL EXAMINATION: GENERAL: She appears somewhat chronically ill, mildly undernourished. VITAL SIGNS: Temperature 98.9, pulse 104, respirations 19, blood pressure 115/46, weight is 165 pounds. HEENT: Unremarkable. NECK: Supple. LUNGS: There are bilateral basilar crackles. HEART: Regular. No appreciated murmur. ABDOMEN: Soft, nontender, nondistended. Right hip site is not overtly cellulitic. The wound VAC is in place. It is not exquisitely tender. GENITOURINARY AND RECTAL: Deferred. LABORATORY DATA: CBC: White count of 17.6, H and H 13.1 and 40.5, platelets of 134. Lactic acid now 2.4, down from high of 3.9. Electrolytes: Sodium 132, potassium 4.2, chloride 98, bicarbonate is 16, anion gap of 18, BUN and creatinine 25 and 1.3. AST of 120, ALT of 90, albumin 3.2, total protein 6.8, estimated GFR of 40. TSH of 1.522. IMAGING DATA: Ultrasound of abdomen showed cholelithiasis without bile duct dilatation. CT abdomen and pelvis as described above. No intra-abdominal pelvic inflammation, masses, ascites, bowel obstruction or other acute process. ASSESSMENT: Probable surgical site infection at site of previous hematoma. Agree with empiric antimicrobial therapy. At this point, imaging did not appear to have drainable focus of infection to discuss with orthopedic surgery. Continue empiric therapy. on review of previous cultures did have growth of Staphylococcus aureus from the site roughly a week ago that was known Methicillin-susceptible, we will adjust therapy as required. <ELECTRONICALLY SIGNED> By: Mert Mccain MD 03/07/18 1336 0756 [id number] Mccain MD /nt
[2018-03-07 15:07] LABS: HEPATITIS B SURFACE AG Negative (Negative)
--- NOTE | 2018-03-07 15:47 | NUR ---
WOUND CARE NOTE: CONSULT RECEIVED FOR WOUND VAC PATIENT SEES DR. PADILLA IN [facility] FOR THIS WOUND. PATIENT HAD A HEMATOMA AT ONE POINT THAT WAS THEN I&D. PATIENT HAS HOME NPWT IN PLACE. THIS WAS TURNED OFF. DRESSING REMOVED, INCLUDING PACKING. WOUND MEASURES 0.5X0.5X5.5. WOUND BED APPEARS TO BE RED, MOIST WOUND BED, BUT DIFFICULT TO OBSERVE THE ENTIRETY OF THE WOUND BED DUE TO THE SIZE OF THE WOUND. GUILLERMINA-WOUND WITH WHAT APPEARS TO BE A PETECHIAL RASH. WOUND WAS CLEANSED WITH WOUND CLEANSER, PATTED DRY. NO ODORS OR S/S OF INFECTION NOTED. SKIN PREPPED. WHITE FOAM PACKED INTO WOUND BED. COVERED WITH BLACK FOAM. HOOKED UP TO WOUND VAC AT 150MMHG. GOOD SEAL OBTAINED. PATIENT TOLERATED DRESSING CHANGE WELL. RECOMMEND ENCOURAGE GOOD NUTRITION AND HYDRATION -- DRESSING CHANGES FOLLOW UP IN WOUND CENTER UPON DISCHARGE.
[2018-03-07 15:55] VITALS: BP 96/53
--- NOTE | 2018-03-07 18:01 | NUR ---
ASSUMED RESPONSIBILITY OF PT THIS AM PT IS ALERT AND ORIENTED HR AFIB WITH PVCS AND TACHY NOW ON CARDIZEM PO BLOOD PRESSURES ARE SOFT AT TIME BUT ASYMPTOMATIC LACTIC ACID WENT TO 2.0 IV ABT CONT IV LASIX GIVEN AND BREATHING TX'S STARTED WBAT UP TO BSC STOOL SAMPLE SENT DENIES ANY PAIN T/O DAY CALL LIGHT IN REACH PT CALLS OUT APPROPRIATELY NO CONCERNS AT THIS TIME
[2018-03-07 20:00] VITALS: BP 107/60
[2018-03-08] VITALS: BP 103/49
[2018-03-08 04:00] VITALS: BP 99/59
--- NOTE | 2018-03-08 04:06 | NUR ---
ASSUMED CARE OF PATIENT AT 1900 THE PATIENT REMAINS AFIB ON THE MONITOR O2 SAT MAINTAINED ON 2L NC RESPIRATIONS APPEAR LABORED AT TIMES PARTICULARLY AFTER EXERTION THE PATIENT DENIES SHORTNESS OF AIR SHE CONTINUES TO BE UP WITH STANDBY ASSIST TO THE BSC ROUTINE REGIMEN CONTINUES TO BE EFFECTIVE FOR SX MANAGEMENT SAFETY INTERVENTIONS CONTINUE BED LOWERED WHEELS LOCKED CALL LIGHT IN REACH SIDE RAILS UP REPORT TO BE GIVEN TO CHEL CARMEN
[2018-03-08 08:00] VITALS: BP 104/52
[2018-03-08 12:52] VITALS: BP 101/57
[2018-03-08 16:28] VITALS: BP 93/51
--- NOTE | 2018-03-08 19:16 | NUR ---
ASSUMED CARE OF PT AT 0730. PT REMAINS A&O X4, CALM AND COOPERATIVE. PT HAS HAD NO C/O PAIN OR DISCOMFORT TODAY. CONTINUED IV ABT. PT VSS ON 2L VIA NC. PT STILL HAS A LOT OF WHEEZE AND IS COARSE THROUGHOUGHT. PT HAS A DECENT APPETTITE AND HAS ATE GREATER THAN 75% OF ALL MEALS TODAY. PT CURRENTLY RESTING IN BED WATCHING TV WITH AT BEDSIDE. NURSIGN WILL CONTINUE TO MONITOR.
[2018-03-08 20:00] VITALS: BP 111/58
[2018-03-09] VITALS: BP 98/53
[2018-03-09 04:05] VITALS: BP 98/59
[2018-03-09 05:03] LABS: HEMATOCRIT 37.3 % (37.0-47.0); HEMOGLOBIN 12.2 gm/dL (12.0-15.0); MCH 28.5 pg (26.0-34.0); MCHC 32.7 g/dL (28.0-37.0); MCV 87.1 fL (80.0-100.0); MPV 11.7 fl. (7.2-11.1); RBC 4.28 mil/uL (4.20-5.00); WBC 12.8 thou/uL (4.0-11.0)
[2018-03-09 05:30] LABS: ALBUMIN 2.9 g/dL (3.4-5.0); CALCIUM 8.3 mg/dL (8.5-10.1); CREATININE 0.8 mg/dL (0.6-1.3); MAGNESIUM 1.8 mg/dL (1.8-2.4); TOTAL BILIRUBIN 1.2 mg/dL (<0.1-1.0); TOTAL PROTEIN 7.2 g/dL (6.4-8.2)
[2018-03-09 05:33] LABS: POTASSIUM 2.9 mmol/L (3.5-5.1)
[2018-03-09 05:34] LABS: ALBUMIN 2.9 g/dL (3.4-5.0); TOTAL BILIRUBIN 1.2 mg/dL (<0.1-1.0); TOTAL PROTEIN 7.2 g/dL (6.4-8.2)
[2018-03-09 05:54] LABS: DIRECT BILIRUBIN 0.5 mg/dL (<0.1-0.3)
--- NOTE | 2018-03-09 06:48 | NUR ---
ASSUMED CARE OF PATIENT AT 1900 THE PATIENT REMAINS AFIB ON THE MONITOR O2 SAT MAINTAINED ON 3LNC CONTINUES TO BE UP WITH STANDBY ASSIST TO BSC IN AM CRITICAL POTASSIUM LEVEL RECEIVED AND REPORTED TO DR. WILLS NEW ORDERS RECEIVED ENTERED INCREASE SCHEDULE K+ TO 20 MEQ PO BID PROTOCOL INITIATED ORDERED IN AM THE PATIENT REPORTS INCREASED SHORTNESS OF AIR RT CONTACTED FOR PRN NEBULIZER AM DOSE OF LASIX ADMINISTERED IV IN RFA INFILTRATED WAS DC'D ET NE LINE WAS PLACED IN LEFT AC 22# THE REGIMEN CONTINUES, PATIENT PROGRESSING TOWARDS GOALS SAFETY INTERVENTIONS CONTINUE BED LOWERED WHEELS LOCKED CALL LIGHT IN REACH SIDE RAILS UP REPORT TO BE GIVEN TO ONCOMING RN
[2018-03-09 11:49] VITALS: BP 102/56
[2018-03-09 16:34] VITALS: BP 92/57
--- NOTE | 2018-03-09 18:48 | NUR ---
ASSUMED CARE OF PT AT 0730. PT CONTINUES TO BE A&O X4 CALM AND COOPERATIVE. PT HAS HAD NO C/O PAIN OR DISTRESS TODAY. VSS ON 3L VIA NC, PT HAS BEEN TRACING IRR. AFIB WITH RATES IN THE 100'S TODAY. PT HAS BEEN AMBULATING IN THE CACERES WITH 1 ASSIST, GAIT BELT AND WALKER. PT VOIDING VIA THE TOILET TODAY INSTEAD OF THE BEDSIDE COMMODE IN [facility] TO GAIN MORE STEPS AND INCREASE AMBULATION THROUGH THE DAY. PT AMBULATED DOWN TO THE END OF THE CACERES AND BACK TO HER RTOOM TODAY. HER K+ LEVEL WAS 2.9 THIS AM AND WAS REPLACED PER PROTOCOL AND AT RECHECK WAS 3.9, PT HAS A GOOD APPETITE AND HAS ATE GREATER THAN 75% OF ALL MEALS TODAY. PT CURRENTLY RESTING IN RECLINER AT BEDSIDE WATCHING TV. NURSING WILL CONTINUE TO MONITOR FOR COMFORT AND SAFTEY.
[2018-03-09 20:00] VITALS: BP 111/70
[2018-03-09 23:35] VITALS: BP 109/50
[2018-03-10 03:41] VITALS: BP 101/53
[2018-03-10 04:41] LABS: HEMATOCRIT 38.1 % (37.0-47.0); HEMOGLOBIN 12.2 gm/dL (12.0-15.0); MCH 28.3 pg (26.0-34.0); MCV 88.2 fL (80.0-100.0); RBC 4.32 mil/uL (4.20-5.00); RDW-CV 16.6 % (10.5-14.5); WBC 12.7 thou/uL (4.0-11.0)
[2018-03-10 05:09] LABS: ALBUMIN 2.9 g/dL (3.4-5.0); CREATININE 0.7 mg/dL (0.6-1.3); MAGNESIUM 1.8 mg/dL (1.8-2.4); POTASSIUM 4.2 mmol/L (3.5-5.1); TOTAL PROTEIN 6.7 g/dL (6.4-8.2)
--- NOTE | 2018-03-10 05:16 | NUR ---
ASSUMED CARE OF PATIENT AT 1900 THE PATIENT REMAINS AFIB ON THE MONITOR O2 SAT IS MAINTAINED ON 3L NC THE PATIENT CONTINUES TO BE UP WITH STANDBY ASSIST TO THE BSC DURING NIGHT PER HER REQUEST VS BRP DUE TO WOUND VAC DIFFICULTIES IN TRANSPORTING WHILE AMBULATING THE ROUTINE ET PRN REGIMEN CONTINUES TO BE EFFECTIVE FOR SX PRN X 1 MELATONIN FOR INSOMNIA WITHOUT FURTHER COMPLAINTS THE PATIENT CONTINUES TO PROGRESS TOWARDS CARE SAFETY INTERVENTIONS CONTINUE BED LOWERED WHEELS LOCKED CALL LIGHT IN REACH SIDE RAILS UP REPORT TO BE GIVEN TO CHEL CARMEN
--- NOTE | 2018-03-10 05:23 | NUR ---
AT SHIFT START CLARIFIED WITH DR MARRERO WHICH K+ ORDER HE WANTED TO DISCONTINUE AFTER NOTING DUPLICATE K+ WITH DIFFERENT DOSAGES REVIEWED K+ LEVEL ORDER OBTAINED ENTERED
[2018-03-10 08:08] VITALS: BP 108/48
[2018-03-10 11:31] VITALS: BP 112/46
--- NOTE | 2018-03-10 13:56 | NUR ---
ORDER RECEIVED FOR "EVAL AND TREAT". SPOKE WITH PATIENT AND FAMILY AT 1332. EDUCATED IN ROLE OF O.T. IN ACUTE CARE SETTING. PT DECLINING NEED FOR OCCUPATIONAL THERAPY, STATING THAT SHE TOOK A SHOWER INDEPENDENTLY LAST NIGHT. PT STATING THAT ONLY ASSIST WAS TO COVER R HIP WHERE PATIENT HAD SURGERY IN NOVEMBER OF THIS YEAR. SPOUSE CONCURRING THAT THERE IS NOT A NEED FOR OT SERVICES, THEREFORE, WILL D/C FROM O.T. [facility]. Yomaira MARION OTR/Sukhwinder
--- NOTE | 2018-03-10 15:27 | NUR ---
CM SPOKE TO THE PATIENT AND SPOUSE TO DISCUSS HOME SITUATION, DISCHARGE PLANNING, AND TO INFORM OF THE ROLE OF CM. PATIENT IS ALERT AND ORIENTED. PATIENT NORMALLY INDPENDENT WIH ADL'S. PATIENT RESIDES AT HOME WITH WITH SPOUSE. PATIENT OWNS A WALKER, CANE, AND TRANSPORT CHAIR. PATIENT IS CURRENT WITH [facility]. PATIENT HAS HX OF SNF AT [place]. CM WILL REMAIN AVIAILABLE TO ASSIST AND FOLLOW NEEDED.
--- NOTE | 2018-03-10 16:20 | NUR ---
WOUND CARE NOTE: WOUND VAC DRESSING CHANGE WOUND VAC IN PLACE PER ORDERS. REMOVED FOR DRESSING CHANGE. ALL PACKING INTACT. GUILLERMINA-WOUND NOW WITH RASH. APPLIED MARATHON OVER FOR PROTECTION AGAINST MOISTURE. CLEANSED WOUND WELL WITH WOUND CLEANSER. ATTEMPTED TO PLACE BLACK FOAM INTO WOUND BED, BUT OPENING OF WOUND IS TOO SMALL. FEAR BLACK FOAM BREAKING AND BEING UNABLE TO RETRIEVE. CUT WHITE FOAM AND PACKED INTO WOUND BED. APPLIED DRAPE. THEN APPLIED BLACK FOAM OVER DRAPE AND WHITE FOAM. APPLIED TRAC PAD. GOOD SEAL OBTAINED AT 150MMHG. RECOMMEND NYSTATIN FOR GUILLERMINA-WOUND DURING NEXT DRESSING CHANGE POSSIBLY WIDEN WOUND OPENING TO APPLY FOAM INTO WOUND BED MORE EFFECTIVELY?
[2018-03-10 16:24] VITALS: BP 106/61
--- NOTE | 2018-03-10 19:19 | NUR ---
ASSUMED CARE OF PT AT 0715. OT REMAINS A&O X4 CALM AND COOPERATIVE. VSS ON ROOM AIR AND TRACING A FIB ON THE MONITOR WITH RATES IN THE LOW 100'S. PT HAS BEEN AMBULATING IN HER ROOM WITH 1 ASSIST, CANE AND GAIT BELT. THIS NURSE PREFORMED AN EXERCISE OXIMETRY TODAY AND THE PT AMBULATED AROUND 70 YARDS WITH GAIT BELT AND CANE AND OXYGEN SATURATIONS REMAINED ABOVE 94% ON ROOM AIR. PT HAD HER WOUND VAC DRESSING CHANGED BY THE WOUND NURSE TODAY. SHE HAS HAD A GOOD APPETITE AND HAS BEEN EATING GREATER THAN 75% OF MEALS WELL FOOD AND DRINK HER FAMILY BRINGS IN. PT LOST IV ACCESS AND THIS NURSE WAS UNABLE TO OBTAIN PLACEMENT OF A NEW ONE. ANOTHER NURSE WAS ASKED TO LOOK WELL THE REGISTERED DIETETIC TECHNICIAN. INTAKE ASSESSOR NURSE MADE AWARE OF THIS AND MAY ASKE THAT ABT BE CONVERTED TO PO D/T POOR ACCESS. PT CURRENTLY RESTING IN BED READING. NURSING WILL CONTINUE TO MONITOR.
[2018-03-10 20:00] VITALS: BP 102/41
[2018-03-10 23:00] VITALS: BP 111/53
[2018-03-11] VITALS (7 sets, daily range): BP systolic 94–114; BP diastolic 36–65
[2018-03-11 05:39] LABS: HEMATOCRIT 37.7 % (37.0-47.0); HEMOGLOBIN 12.2 gm/dL (12.0-15.0); MCH 28.4 pg (26.0-34.0); MCHC 32.4 g/dL (28.0-37.0); MCV 87.8 fL (80.0-100.0); MPV 10.2 fl. (7.2-11.1); RBC 4.3 mil/uL (4.20-5.00); RDW-CV 16.8 % (10.5-14.5)
[2018-03-11 05:42] LABS: ALBUMIN 2.7 g/dL (3.4-5.0); CALCIUM 8.9 mg/dL (8.5-10.1); CREATININE 0.8 mg/dL (0.6-1.3); MAGNESIUM 1.9 mg/dL (1.8-2.4); POTASSIUM 3.7 mmol/L (3.5-5.1); TOTAL BILIRUBIN 0.8 mg/dL (<0.1-1.0); TOTAL PROTEIN 6.9 g/dL (6.4-8.2)
--- NOTE | 2018-03-11 10:30 | NUR ---
CONTINUE TO FOLLOW, MET WITH PT AND SPOUSE. PT DECLINES TO CONSIDER [facility] OR SNF. STATES SHE LEFT SNF AT [place] ABOUT A MONTH AGO. HAS BEEN FOLLOWED AT HOME BY [facility] BUT STATED SHE IS NOT COMFORTABLE WITH THEM CHANGING HER WOUND VAC, WANTS TO GO TO THE [facility] FOR ALL HER CHANGES AND PER SPOUSE, THEY HAD JUST CONVERTED TO THAT. SHE STATES SHE DOESN'T WANT HH AT ALL, DOESN'T FEEL SHE NEEDS THEM. THERE IS SOME DISCUSSION RE: WOUND WITH THE WOUND NURSE AND POSSIBLE SURGERY, AWAIT DECISION. PT HAS WALKER AND CANE AT HOME AND SPOUSE IS VERY SUPPORTIVE, ASSISTS NEEDED. PT STATES FEELING IMPROVED TODAY. WILL NEED F/U APPT AT THE [facility] [place]. HAS HER HOME WOUND VAC IN THE ROOM, AWARE THAT NURSE CAN PLACE IT AT [place]. WILL FOLLOW
--- NOTE | 2018-03-11 11:16 | NUR ---
ASSUMED CARE OF PATIENT THIS AM AT 0730. PATIENT IS ALERT AND ORIENTED X 4. SHE DENIES PAIN THIS AM. WOUND VAC IS ON AND OPERATIONAL. TELE SHOWS CONTINUED AFIB. PATIENT'S BP IS LOW TODAY. METROPROLOL HELD AND DR SEPULVEDA NOTIFIED. PATIENT IS UP IN THE CHAIR THIS AM. DR SHERWOOD IN TO ROUND AND PATIENT PLACED ON PO ANTIBIOTICS. PATIENT HAS 3+ EDEMA TO HER RIGHT LEG AND LEFT ANKLE AND FOOT. SHE CONTINUES TO HAVE NO IV ACCESS. WILL CONTINUE TO MONITOR. NO FALLS OR INJURY. SPOUSE IS IN AT THE BEDSIDE.
--- NOTE | 2018-03-11 16:18 | CON ---
[address] [address] CONSULTATION Name: OUSMANE HYDE Room: [address] IN .R.#: [id number] Admission: 03/06/18 Attend Phys: Navya Mercedes MD Discharge: Date of : 43 Report #: [id number] THIS REPORT FOR: //name// CC: Pam Mercedes DICTATED BY: Mary Tinsley [facility] DATE OF SERVICE: 03/07/2018 PRIMARY CARE PHYSICIAN: Pam Louise MD Please note at the time of this dictation, the patient was seen and physically examined by myself. REASON FOR CONSULTATION: Cholelithiasis along with some nausea and diarrhea. HISTORY OF PRESENT ILLNESS: This is a 72-year-old female who presented to the Emergency Room yesterday with increased fatigue, nausea and some diarrhea. She states she has had worsening of her diarrhea over the last couple of days with some mild nausea and some retching. The patient states she has been on antibiotics for the last 3 weeks for a complication after she had her right intertrochanteric hip fracture and subsequent nail fixation with Dr. Rizzo. She then also had some issues with wound healing, thus prompting her to be on antibiotics prolonged over this past month. She states that is when she started having issues with her bowels being very loose, she denies any foul smell any bright red blood or any mucus at this time. She does not have any fever or chills and has not had any abdominal cramping associated with this. Prior to her surgery and the onset of her diarrhea, she states her bowels were normal, soft and formed every day with no evidence of any bright red blood or any melena. The patient had an EGD and colonoscopy with [facility] about a year and a half ago. We will obtain those records for our review. It is also noted that she has gallstones that were noted on CT. Ultrasound confirmed that, but she had a normal CPD; however, her LFTs are elevated; however, total bilirubin is completely normal. The patient is asymptomatic with this as well and not having any right upper quadrant discomfort. ALLERGIES: FLU VACCINE, PLASTIC TAPE AND CONTRASTED IV FLUIDS. MEDICATIONS: From home include tramadol, potassium, Bactrim, Xarelto, metoprolol, simvastatin, and Lasix. PAST MEDICAL HISTORY: Hypertension, hyperlipidemia, atrial fib, and arthritis. PAST SURGICAL HISTORY: Bilateral TKAs, tubal ligation, [place] [address] CONSULTATION Name: OUSMANE HYDE Room: [address] IN ..#: [id number] Admission: 03/06/18 Attend Phys: Navya Mercedes MD Discharge: Date of : 43 Report #: [id number] surgery in her right intertrochanteric nailing of her hip. FAMILY HISTORY: Negative for any GI or female cancers. SOCIAL HISTORY: Nonsmoker, alcohol socially and denies any illegal drug use. REVIEW OF SYSTEMS: Twelve-point review of systems is essentially negative except what is mentioned in the HPI. PHYSICAL EXAMINATION: VITAL SIGNS: Temperature 36.6, pulse 102, respirations 17, blood pressure 96/62. HEART: Irregular rate and rhythm. LUNGS: Clear. ABDOMEN: Soft, positive bowel sounds in all 4 quadrants with no masses or tenderness noted. LABORATORY DATA: Hemoglobin 13.1, hematocrit 40.5, white count is 17.6, platelets is 134. Sodium 132, potassium 4.2, chloride 98, CO2 is 16, BUN is 25, creatinine 1.3, GFR is 40 and a glucose is 150. Again, ultrasound of the abdomen showed CPD that was completely normal. Total bilirubin was 0.8, alkaline phosphatase was 120, ALT 90 and AST is 120. IMPRESSION: 1. Cholelithiasis. 2. Elevated liver function tests. 3. Diarrhea. 4. Antibiotic recent use and current use secondary to a right hip wound infection. 5. Leukocytosis. 6. Anticoagulant therapy, Xarelto, atrial fibrillation. 7. Thrombocytopenia. PLAN: 1. We will await C. diff cultures. 2. We will obtain EGD and colonoscopy report from [facility]. 3. We will await acute hepatitis panel, which is pending. Thank you for allowing us to participate in this patient's care. Please do not hesitate to call with any questions in regard to this consult. ADDENDUM This is a patient who had been hospitalized after being referred from clinic with fever, chills and malaise. She underwent a repair of right hip fracture in late November and had complications such as hematoma requiring wound VAC placement. [address] [address] CONSULTATION Name: OUSMANE HYDE Room: [address] IN M.R.#: [id number] Admission: 03/06/18 Attend Phys: Navya Mercedes MD Discharge: Date of : 43 Report #: [id number] Over the past several days, the patient has had symptoms of nausea, fever and hip pain. The patient also was found to have elevated liver enzymes. Since hospitalization, she had a CT of the abdomen and pelvis and ultrasound, which showed evidence of cholelithiasis without any common bile duct defect. Viral hepatitis serology has been ordered and pending. The patient has mild thrombocytopenia and AST more than ALT. We will continue to monitor LFTs. We will await the results of viral hepatitis serology and make further recommendation. If the liver enzyme elevation is persistent, we may consider a liver biopsy to further evaluate this. The patient also has been receiving care with [facility], which we will obtain records to better understand the patient's history. <ELECTRONICALLY SIGNED> By: Katia Abad MD 03/11/18 1618 [id number] Abad MD /nt
--- NOTE | 2018-03-12 02:52 | NUR ---
PATIENT RESTING IN BED. ALERT AND ORIENTED X 4, WITHOUT COMPLAINTS OF PAIN, DISCOMFORT, OR SOA. WILL CONT. TO MONITOR. BED IN LOW POSITION, CALL LIGHT IN REACH, BED ALARM ON. CONT. WITH PLAN OF CARE AT THIS TIME.
[2018-03-12 04:16] VITALS: BP 103/56
[2018-03-12 07:40] VITALS: BP 118/45
--- NOTE | 2018-03-12 10:12 | NUR ---
RECEIVED REPORT FROM SHELL AND ASSUMED CARE OF PT @ 0570.PT IS A/O X4,VSS,TRACING AFIB ON THE MONITOR.LUNG SOUNDS ARE CLEAR.LAST BM WAS TODAY.NO IV ACCESS.PT IS CALM AND COOPERATIVE WITH NO C/O PAIN AT TIME OF ASSESSMENT.PT IS UP SBA WITH CANE IN ROOM.WOUND VAC SECURE AND PATENT.PT LEFT RESTING IN RECLINER WITH CALL LIGHT AND FALL PRECAUTIONS IN PLACE.WILL CONTINUE TO MONITOR. PT SHOWERED IN SIT DOWN SHOWER THIS AM.
[2018-03-12 12:10] VITALS: BP 144/70
--- NOTE | 2018-03-12 14:13 | CON ---
[address] [address] CONSULTATION Name: OUSMANE HYDE Room: [address] IN M.R.#: [id number] Admission: 03/06/18 Attend Phys: Navya Mercedes MD Discharge: Date of : 43 Report #: [id number] THIS REPORT FOR: //name// CC: Pam Mercedes DATE OF SERVICE: 03/07/2018 Cardiology Consultation PRIMARY CARE PHYSICIAN: Pam Louise M.D. HISTORY OF PRESENT ILLNESS: The patient is a 72-year-old white female who I was asked to see in the hospital today after she is noted to be in atrial fibrillation. The patient has a history of persistent atrial fibrillation. She has been followed by my partner, Dr. Peng. She actually had a heart catheterization back in 2012 when she had an echocardiogram that showed moderate mitral regurgitation and a stress test, suggested apical ischemia. Dr. Helms performed a heart catheterization from the right radial artery. She also had a right heart catheterization on the right femoral vein. She was found to have ejection fraction of 50%, moderate mitral regurgitation. No gradient across the aortic valve. There were normal coronary arteries. The patient subsequently developed persistent atrial fibrillation, was decided for aim for rate control and chronic anticoagulation. She was initially on warfarin, but was then switched to Xarelto. She last saw Dr. Peng in January of this year. Her rate of atrial fibrillation has been controlled with metoprolol. Unfortunately, she fell this past spring and required a hip repair. She had surgery on the hip and subsequent hematoma. She developed a drainage and felt to have an infected prosthesis. The patient has been going to the wound clinic. However, recently, the patient was not doing well. She was brought to the Emergency Room yesterday and she was having nausea, vomiting, some loose stools and then placed on antibiotics. She was brought to the emergency room and admitted. Because the rate of atrial fibrillation was increased, she was started on IV diltiazem. She denies any recent chest pain, increased shortness of breath, palpitations, bleeding. PAST MEDICAL HISTORY: Significant for knee surgery, tonsillectomy, cataract extraction, hypertension, hyperlipidemia, mitral regurgitation. MEDICATIONS: Consist of furosemide, metoprolol, potassium, Xarelto, simvastatin. ALLERGIES: SHE HAS A PREVIOUS [place] [address] CONSULTATION Name: OUSMANE HYDE Room: [address] IN [facility]#: [id number] Admission: 03/06/18 Attend Phys: Navya Mercedes MD Discharge: Date of : 43 Report #: [id number] FAMILY HISTORY: Father and mother are both . SOCIAL HISTORY: She is nonsmoker, nondrinker. She is and lives with her in [place]. REVIEW OF SYSTEMS: She has had no history of stroke, asthma, peptic ulcer disease, liver disease, kidney disease, cancer, psychiatric illness, chronic skin condition. PHYSICAL EXAMINATION: GENERAL: Revealed an elderly female lying in bed. She appeared in no distress. VITAL SIGNS: She had a blood pressure of 120/70, pulse is 100. She is afebrile. HEENT: She was anicteric, conjunctiva pink. Mucous membranes moist. NECK: Veins not distended. No carotid bruits. CHEST: Clear to auscultation. CARDIAC: rhythm, grade 2 systolic ejection murmur. ABDOMEN: Obese, soft, nontender. EXTREMITIES: Had no edema. Dorsalis pedis pulse could not be palpated. SKIN: Cool and dry, although she did have a dressing over the right hip. NEUROLOGIC: Nonfocal. LYMPH: No adenopathy. MUSCULOSKELETAL: No joint effusion. Her ECG on admission showed atrial fibrillation with an increased ventricular response rate. There were nonspecific T-wave changes. Her workup in the Emergency Room, she had a portable chest x-ray that showed normal heart size, clear lung mota. LABORATORY DATA: Sodium 132, creatinine 1.3. Liver function studies were normal. Troponin 0.06. TSH 1.5. White blood cell count 17.6, hemoglobin 13.1. IMPRESSION AND RECOMMENDATIONS: 1. Permanent atrial fibrillation. Rate has been controlled with a beta-leti. I suspect secondary to underlying illness, the rate is increased. At this time, I would add diltiazem. I would continue chronic anticoagulation. 2. Recent leg fracture. The patient had surgery. She now has a chronic wound. The patient goes to the wound clinic. 3. Hypertension. The patient has been on beta-leti. 4. Hyperlipidemia. The patient is on a statin drug. 5. Mitral regurgitation. <ELECTRONICALLY SIGNED> By: Selvin Roberts MD, FACC 03/12/18 1413 0947 [id number] Roberts MD, FACC /nt
[2018-03-12 16:25] VITALS: BP 102/44
--- NOTE | 2018-03-12 17:42 | NUR ---
VSS,CARDIAC MONITORING IN PLACE WITH NO CHANGES.PT REMAINS ON ROOM AIR.PT PROGRESSING TOWARDS GOALS.DENIED PAIN THIS SHIFT.IV STARTED IN RIGHT FOREARM,SALINE LOCKED FOR SURGERY IN AM.PT TO BE NPO AT MIDNIGHT.CONSENT ON THE CHART.PT INFORMED OF PLAN OF CARE AND COMMUNICATES UNDERSTANDING.PT AMBULATED IN ROOM.HOURLY ROUNDING COMPLETED FOR PT SAFETY.CALL LIGHT IN PLACE.WILL CONTINUE TO MONITOR.
[2018-03-12 20:00] VITALS: BP 110/55
[2018-03-13] VITALS (7 sets, daily range): BP systolic 102–118; BP diastolic 52–66
--- NOTE | 2018-03-13 05:07 | NUR ---
ASSUMED PT CARE AT 1930, NURSING ASSESSMENT COMPLETED AT START OF SHIFT. PT TRACING AFIB ON HEART MONITOR. SPOUSE AT BEDSIDE AT START OF SHIFT. HOURLY ROUNDING COMPLETED, PT NPO AFTER MIDNIGHT FOR RIGHT HIP DEBRIDEMENT. PT VOICED NO CONCERNS THIS SHIFT. HOURLY ROUNDING COMPLETED. CALL LIGHT WITHIN REACH.
--- NOTE | 2018-03-13 10:25 | NUR ---
CONTINUE TO FOLLOW, MET WITH PT AND SPOUSE, SHE WAS LEAVING FOR SURGERY. MADE AWARE THAT CM MADE APPT IN WOUND CENTER WITH NURSING FOR WOUND VAC CHANGE 03/17 AT 10AM. INFO PUT IN DC PAPERWORK. WILL FOLLOW
--- NOTE | 2018-03-13 10:45 | NUR ---
RECEIVED REPORT FROM JUANIS AND ASSUMED CARE OF PT @ 8563.PT IS A/O X4,VSS,TRACING AFIB ON THE MONITOR.LUNG SOUNDS ARE CLEAR.LAST BM WAS TODAY.IV RIGHT FOREARM PATENT AND SALINE LOCKED.WOUND VAC SECURE AND PATENT.PT IS CALM AND COOPERATIVE WITH NO C/O PAIN AT TIME OF ASSESSMENT.PT IS UP WITH SBA TO BSC.PT LEFT RESTING IN RECLINER WITH CALL LIGHT AND FALL PRECAUTIONS IN PLACE.WILL CONTINUE TO MONITOR. NPO STATUS MAINTAINED SINCE MIDNIGHT FOR SURGERY THIS AM.MATTHEW HELD THIS AM.
--- NOTE | 2018-03-13 18:18 | NUR ---
VSS,CARDIAC MONITORING IN PLACE WITH NO CHANGES THIS SHIFT.PT ON 2L O2 NC.PT HAD DEBRIDEMENT OF WOUND TODAY WITH NO COMPLICATIONS.WOUND VAC D/C.KORI DRAIN SECURE IN PLACE AND PATENT.IV PATENT AND SALINE LOCKED.PAIN MANAGED WELL WITH PO MEDICATIONS.PT INFORMED OF PLAN OF CARE AND COMMUNICATES UNDERSTANDING.PT IS UP WITH SBA TO BSC.STRICT I/O MONITORED.HOURLY ROUNDING COMPLETED FOR PT SAFETY.CALL LIGHT AND FALL PRECAUTIONS IN PLACE.WILL CONTINUE TO MONITOR FOR DURATION OF SHIFT.
[2018-03-14] VITALS: BP 103/58
--- NOTE | 2018-03-14 03:45 | NUR ---
ASSUMED PT CARE AT 1930. NURSING ASSESSMENT COMPLETED AT START OF SHIFT. PT VOICED NO CONCERNS THIS SHIFT. PT TRACING AFIB ON CORRECTIONAL OFFICER. PT VERBALIZED MILD PAIN TO RIGHT HIP. RIGHT HIP SURGICAL DRESSING CLEAN, DRY, INTACT. KORI DRAIN IN PLACE. PRN PAIN MEDICATION ADMINISTERED, SEE EMAR FOR DOCUMENTATION. PAIN MEDICATION EFFECTIVE. HOURLY ROUNDING COMPLETED, CALL LIGHT WITHIN REACH. PT PROGRESSING TOWARDS GOALS.
[2018-03-14 04:00] VITALS: BP 103/50
[2018-03-14 08:00] VITALS: BP 107/57
--- NOTE | 2018-03-14 10:50 | NUR ---
RECEIVED REPORT AND ASSUMED CARE AT 0700. VSS. GILMAN MONITORING IN PLACE. PT DENIES ANY COMPLAINTS OF PAIN. ASSESSMENT COMPLETED CHARTED. MEDICATIONS ADMIN PER ORDERS. PT UP SBA WITH CANE TO BSC, ON 2L NC. BED IN LOWEST POSITION, CALL LIGHT WITHIN REACH, BED ALARM ON. DISCUSSED PLAN OF CARE WITH PT, VERBALIZED UNDERSTANDING. WILL CONTINUE TO MONITOR FOR REMAINDER OF THE SHFIT.
--- NOTE | 2018-03-14 10:51 | NUR ---
Nutrition: Pt assessed for sepsis DX. Not currently on sepsis protocol, per assessment form. Has Rt hip wound VAC, will follow outpatient in wound clinic. Wt is at usual, ~175#. Alb 2.7, prealb 13.6, elevated LFTs. +BM yday. Regular diet ordered. Encourage good po intake, and good HBV protein intake. RD will order Arginaid (Chris) packets for wound healing. Recommend MVI as well. Mild nutrition risk. GOAL: >75% of meal/supplements intake.
[2018-03-14 11:34] VITALS: BP 124/65
--- NOTE | 2018-03-14 14:23 | NUR ---
CONTINUE TO FOLLOW, MET ROSEMARY PT. SHE HAD WOUND CLOSURE OF HER HIP WOUND YESTERDAY SO WOUND VAC IS OFF. PT WANTS TO KEEP HER APPT IN [facility] FOR SATURDAY. SHE IS HOPEFUL TO GO HOME. STILL DECLINING HH AND STATES IF [facility] FEELS SHE NEEDS IT SATURDAY, SHE WILL CONSIDER IT THEN.
[2018-03-14] MEDS ORDERED: AUGMENTIN 875-1 EACH PO (15:00)
[2018-03-14] MEDS ORDERED: HYDROCODONE-AP1 EAC6 PO (15:02)
[2018-03-14] MEDS ORDERED: DIFLUCAN200 MG PO (15:04)
[2018-03-14] MEDS ORDERED: NYAMYC15 GM TOP (15:06)
[2018-03-14] MEDS ORDERED: CARDIZEM CD180 MG PO (15:07)
[2018-03-14] MEDS ORDERED: PROTONIX40 M1 PO (15:09)
[2018-03-14] MEDS ORDERED: MUCINEX600 MG PO (15:10)
[2018-03-14] MEDS ORDERED: LEVALBUTER1.25 MG/0. INH (15:11)
[2018-03-14 15:12] VITALS: BP 109/39
--- NOTE | 2018-03-14 19:46 | NUR ---
[facility] RESIDENTS HERE TO ASSESS HIP DRESSING- REPORTED TO HAVE PULLED KORI DRAIN AND PLACED NEW BANDAGE WITH FOAM TAPE- INSTRUCTIONS RECIVED FOR DRESSING TO REMAIN IN PLACE WITH TAPE GIVEN TO REINFORCE IF NEED BE TILL F/U [facility] ON Saturday03/17/18 PER [facility]THO AND THIS NURSE WITH VERBAL UNDERSTANDING RECIEVED PER PT AND - NEEDED FU'S COMMUNICATED- ALL QUESTIONS AND CONCERNS ADDRESSED- PT OKAY PER [facility]TH[facility] TO PROCED WITH D/C- PT ESCORTED PER TECH VIA W/C TO VEHICLE WITH BELONGINGS; AT SIDE- NO PROBLEMS NOTED AT TIME OF D/C OF 1944
--- NOTE | 2018-04-03 11:54 | OP ---
[address] [address] OPERATIVE REPORT Name: OUSMANE HYDE Room: [address]#: [id number] Admission: 03/06/18 Attend Phys: Navya Mercedes MD Discharge: 03/14/18 Date of : 43 Report #: [id number] THIS REPORT FOR: //name// CC: Pam Mercedes DICTATED BY: Sheldon Mccullough DO DATE OF SERVICE: 03/13/2018 DIAGNOSES: 1. Right hip wound. 2. History of right long cephalomedullary nail. PROCEDURE: Right hip irrigation and debridement with closure of deep wound and excision of sinus tract with primary wound closure. SURGEON: Sonido Roman DO. HAT BRIM AND CROWN LAMINATING OPERATOR: Sheldon Mccullough DO ANESTHESIA: General. ESTIMATED BLOOD LOSS: 15 mL. COMPLICATIONS: None. SPECIMENS: Two culture swabs. DRAINS: KORI drain. CONDITION: The patient is stable to PACU. INDICATIONS FOR PROCEDURE: The patient is a 72-year-old female who had a long cephalomedullary nail placed on 12/12/2017, had a hematoma develop that ended up becoming a draining wound. There was never any purulence noted. Wound Care was unable to pack the deep portion of the wound because of how small the opening was. She did not have any pain. There was no concern for deep orthopedic implant infection, but it was recommended due to the nonhealing nature of this wound that she undergo an open incisional debridement with revision wound closure. All risks, benefits, complications and indication reviewed with the patient and she wished to proceed. DESCRIPTION OF PROCEDURE: The patient was brought to the operative suite and placed supine on a well-padded table, given the benefits of general anesthesia. At that time, she was placed in left lateral [place] [address] OPERATIVE REPORT Name: OUSMANE HYDE Room: [address]#: [id number] Admission: 03/06/18 Attend Phys: Navya Mercedes MD Discharge: 03/14/18 Date of : 43 Report #: [id number] with axillary roll positioning of the chest wall. Timeout was taken to ensure correct patient, procedure, operative site and antibiotics had been given in the form of Ancef 2 grams IV preop. At that time, a 10 blade scalpel was used to make an elliptical skin incision excising the 1 cm open sinus tract that had failed to heal. This was taken down through skin and through the subcutaneous tissue until normal subcutaneous fat was appreciated. This dissection remained superficial to the tensor fascia fibers. Once this tissue was excised, a curette was used to create a healthy bleeding tissue bed. Wounds were irrigated with normal saline. A KORI drain was placed in the subcutaneous tissues with care taken not to suture the drain in. A #1 PDS suture was used to close the subcutaneous space, followed by 2-0 PDS and keri on the skin. Mepilex dressing was applied. The patient was awoken from anesthesia and brought to PACU in stable condition. <ELECTRONICALLY SIGNED> By: Sonido Roman DO 04/03/18 1154 1232 [id number] Roman DO /nt
--- NOTE | 2018-07-03 11:15 | CON ---
[address] [address] CONSULTATION Name: BARRETTOUSMANE F Room: [address]#: [id number] Admission: 03/06/18 Attend Phys: Navya Mercedes MD Discharge: 03/14/18 Date of : 43 Report #: [id number] THIS REPORT FOR: //name// CC: Pam Mercedes DICTATED BY: Sheldon Mccullough DO DATE OF SERVICE: 03/06/2018 REASON FOR CONSULTATION: Nonhealing right hip wound. HISTORY OF PRESENT ILLNESS: The patient is a 72-year-old female who had a long cephalomedullary nail placed on 12/12/2017, had a hematoma developed, became a draining wound, never had any purulence. Wound care had been packing; however, there was a concern that it traveled too deep and would not heal because they were unable to pack it because of how much I closed off the surface for which our services were reconsulted. We trialed antibiotics and further wound management, but ultimately realized this may need surgical intervention. PAST MEDICAL HISTORY: Atrial fibrillation with RVR, cholelithiasis, hematoma, hip fracture, sepsis. PAST SURGICAL HISTORY: Right long cephalomedullary nail. ALLERGIES: TO PLASTIC TAPE AND IODINATED CONTRAST. MEDICATIONS: See MAR. FAMILY HISTORY: Noncontributory. SOCIAL HISTORY: Denies any alcohol or tobacco use. REVIEW OF SYSTEMS: Twelve-point review of systems is otherwise negative except for the above-mentioned HPI. PHYSICAL EXAMINATION: GENERAL: Alert, oriented, no acute distress. HEENT: Head normocephalic, atraumatic. Eyes: Extraocular motion intact. Ears are normal. Mouth: Mucosa moist. NECK: Supple. CARDIOVASCULAR: Cap refill brisk. ABDOMEN: Soft. MUSCULOSKELETAL: Exam of the right leg demonstrates no purulent drainage noted. There is approximately 1-cm opening over the lateral aspect of the right thigh with no real drainage. This tracks quite deep; however, [place] [address] CONSULTATION Name: OUSMANE HYDE Room: [address]#: [id number] Admission: 03/06/18 Attend Phys: Navya Mercedes MD Discharge: 03/14/18 Date of : 43 Report #: [id number] the tensor fascia. She was neurovascularly intact distally. Her compartments are soft. IMAGING: X-rays reviewed demonstrate well-aligned long cephalomedullary nail. IMPRESSION: 1. Nonhealing right proximal thigh wound. 2. Right long cephalomedullary nail on 12/12/2017. PLAN: At this time, we recommend operative intervention in the form of I and D with primary wound closure versus wound VAC placement. All risks, benefits, complications, indications were reviewed. The patient wished to proceed. <ELECTRONICALLY SIGNED> By: Sonido Roman DO 07/03/18 1115 [id number] 1119[facility]als[facility] Roman DO /jessie
== END 2018-03-14 19:50 | disposition home or self-care (01) | DRG 853 ==
LOC: M.ERS 15:05 → M.TBA-ER 16:57 → M.2W 16:57
PROVIDERS: Internal Medicine; Physician Assistant; Surgery; ADMIT Internal Medicine
PROC: 0JBL0ZZ Excision of Right Upper Leg Subcutaneous Tissue and Fascia, Open Approach (ICD-10-PCS; principal; 2018-03-13)
DX: A41.9 Sepsis, unspecified organism (principal); J15.6 Pneumonia due to other Gram-negative bacteria; I50.33 Acute on chronic diastolic (congestive) heart failure; T81.4XXA Infection following a procedure, initial encounter; I42.9 Cardiomyopathy, unspecified; I48.91 Unspecified atrial fibrillation; K80.20 Calculus of gallbladder without cholecystitis without obstruction; R74.0 Nonspecific elevation of levels of transaminase and lactic acid dehydrogenase [LDH]; E78.5 Hyperlipidemia, unspecified; I48.2 Chronic atrial fibrillation; I11.0 Hypertensive heart disease with heart failure; I34.0 Nonrheumatic mitral (valve) insufficiency; M19.90 Unspecified osteoarthritis, unspecified site; D69.6 Thrombocytopenia, unspecified; K75.9 Inflammatory liver disease, unspecified; Z88.7 Allergy status to serum and vaccine; Z88.8 Allergy status to other drugs, medicaments and biological substances; Z91.041 Radiographic dye allergy status; Z98.49 Cataract extraction status, unspecified eye; Z79.01 Long term (current) use of anticoagulants

== ENCOUNTER → 2018-03-17 | Outpatient (CLI) | payer OTHER ==
[~2018-03-17] MED LIST changes: +AUGMENTIN 875-1 EACH PO; +BACTRIM DS TAB1 EACH PO; +CARDIZEM CD180 MG PO; +DIFLUCAN200 MG PO; +HYDROCODONE-AP1 EAC6 PO; +KLOR-CON 1010 MEQ PO; +LEVALBUTER1.25 MG/0. INH; +LOPRESSOR50 PO; +MUCINEX600 MG PO; +NYAMYC15 GM TOP; +PROTONIX40 M1 PO; +XARELTO20 MG PO
== END ==
LOC: M.WC 00:53
DX: T81.89XA Other complications of procedures, not elsewhere classified, initial encounter (principal); L76.32 Postprocedural hematoma of skin and subcutaneous tissue following other procedure; I11.0 Hypertensive heart disease with heart failure; I50.9 Heart failure, unspecified; I48.2 Chronic atrial fibrillation; E78.2 Mixed hyperlipidemia; M15.0 Primary generalized (osteo)arthritis; Y92.89 Other specified places as the place of occurrence of the external cause; Y83.8 Other surgical procedures as the cause of abnormal reaction of the patient, or of later complication, without mention of misadventure at the time of the procedure

== ENCOUNTER → 2019-10-16 | Outpatient (CLI) | payer OTHER ==
--- NOTE | 2019-10-18 16:37 | CARDNUC ---
[place] [address] CARDIAC NUCLEAR IMAGING REPORT Name: BARRETTOUSMANE Roc Room: [facility]#: [id number] Admission: 10/16/19 Attend Phys: Bassam Hooper, Discharge: Date of : 43 Date of Service: 10/18/19 1636 Report #: [id number] THIS REPORT FOR: //name// APPROVED REPORT Study performed: 10/16/2019 14:53:32 Exam: Nuclear Stress Test Indication: Chest pain Patient Location: Out-Patient Stress Tech: Becki Miranda Stress Nurse: Marnie Galvez RN Ht: 5 ft 4 in Wt: 170 lbs BSA: 1.83 m2 BMI: 29.17 Medical History Medical History: mitral valve insuffficiency, hyperlipidemia, hypertension Medications: lasix, lopressor, ntg, xarelto, simvastatin Allergies: flu vaccine, iodine, tape, regadenosen Cardiac Risk Factors: age, hyperlipidemia, hypertension Exercise History: Physically active Meds Held (24 hrs): lopressor Stress Test Details Stress Test: Pharmacologic stress testing performed using 0.4 mg of regadenoson per 5 mL given IV over 10 seconds. Reason for pharmacologic stress test: a flutter. HR Resting HR: 125 bpm Max Heart Rate (APMHR): 146 bpm Max HR Achieved: 145 bpm Target HR (85% APMHR): 124 bpm % of APMHR: 99 Recovery HR: 141 bpm BP Resting BP: 145/107 mmHg Max BP: 131/82 mmHg ECG Resting ECG: Atrial Fibrillation Stress ECG: Atrial Fibrillation ST Change: None [address] [address] CARDIAC NUCLEAR IMAGING REPORT Name: OUSMANE HYDE Room: [facility]#: [id number] Admission: 10/16/19 Attend Phys: Bassam Hooper, Discharge: Date of : 43 Date of Service: 10/18/19 1636 Report #: [id number] Recovery ECG: Atrial Fibrillation Recovery ST Change: None Clinical Reason for Termination: Completed protocol Exercise duration: 0 min sec Exercise capacity: 1 METs The patient tolerated Lexiscan stress test without significant cardiac symptoms. Stress ECG Conclusion The baseline EKG shows atrial fibrillation with rapid ventricular response rate without significant ST. EKGs obtained during and post Lexiscan infusion showed continued atrial fibrillation with a rapid ventricular response rate. Significant ST segment changes were not appreciated. NM EXAM: Myocardial Perfusion REST/STRESS Resting Data Rest SPECT myocardial perfusion imaging was performed in supine position 30 minutes following the intravenous injection of 10.5 mCi of Tc-99m Sestamibi. Time of rest injection: 13:15 The images were gated to evaluate regional wall motion and calculate left ventricular ejection fraction. Administration Route: IV Administration Site: Right Wrist Pharmacologic Stress Pharmacologic stress test was performed by injecting Regadenoson 0.4 mg IV push followed by the intravenous injection of 31.2 mCi of Tc-99m Sestamibi. Time of stress injection: 14:50 Administration Route: IV Administration Site: Right Wrist Heart Rate at time of stress injection: 136 bpm. Gated Stress SPECT was performed 45 minutes after stress injection. The images were gated to evaluate regional wall motion and calculate left ventricular ejection fraction. Study Quality Study: Good Artifact: [place] [address] CARDIAC NUCLEAR IMAGING REPORT Name: OUSMANE HYDE Room: [facility]#: [id number] Admission: 10/16/19 Attend Phys: Bassam Hooper, Discharge: Date of : 43 Date of Service: 10/18/19 1636 Report #: [id number] Study Data At rest, the left ventricular ejection fraction was 60%.. Post stress, the left ventricular ejection was 56%.. TID = 1.11. Perfusion There is a focal mostly reversible anteroapical defect. No other defects were identified. Defect is of moderate intensity. Wall Motion There is a septal wall motion abnormality of uncertain significance. Global LV systolic function appears preserved. Nuclear Conclusion ECG Findings: negative for ischemia Clinical Findings: negative for ischemia Nuclear Findings: positive for ischemia Exercise Capacity: not assessed Left Ventricular Function: preserved Risk Study: moderate Myocardial perfusion images suggest possible apical ischemia. Global LV systolic function is fairly well-preserved. This is a moderate risk study. <Conclusion> The baseline EKG shows atrial fibrillation with rapid ventricular response rate without significant ST. EKGs obtained during and post Lexiscan infusion showed continued atrial fibrillation with a rapid ventricular response rate. Significant ST segment changes were not appreciated. <ELECTRONICALLY SIGNED> By: Bassam Hooper MD, FACC 10/18/19 1636 1636 1636 Bassam Hooper MD, FACC /INF
== END ==
LOC: M.NUC 09-29 08:30
DX: I65.23 Occlusion and stenosis of bilateral carotid arteries (principal); E78.5 Hyperlipidemia, unspecified; I10 Essential (primary) hypertension; Z79.899 Other long term (current) drug therapy

== ENCOUNTER → 2019-10-22 | Outpatient (CLI) | payer OTHER ==
[~2019-10-22] VITALS: Ht 162.6 cm; Wt 77.1 kg
[~2019-10-22] MED LIST changes: +CARDIZEM CD 18180 M3 PO; +LASIX 40 MG TAB40 M2 PO
--- NOTE | ~2019-10-22 | EKG ---
[place] [address] ELECTROCARDIOGRAM REPORT Name: JOHN HYDETINA Roc Room: [facility]#: [id number] Admission: 10/22/19 Attend Phys: Bassam Hooper MD Discharge: Date of : 43 Report #: [id number] THIS REPORT FOR: //name// [facility] Test Date: 2019-10-22 Test Time: 10:59:14 Pat Name: OUSMANE HYDE Department: Room: Gender: F Commercial Driver'S License Driver: : [id number] Requested By: Bassam Hooper Order Number: [id number] Reading MD: Measurements Intervals Spearman Rate: 102 P: IA: QRS: 34 QRSD: 92 T: -1 QT: 351 QTc: 458 Interpretive Statements Atrial fibrillation Borderline T abnormalities, inferior leads Compared to ECG 03/06/2018 15:41:54 No significant changes [email or web address] By: 1059 105 Epiphany Epiphany, /EPI
[2019-10-22 10:45] LABS: HEMATOCRIT 46.1 % (37.0-47.0); HEMOGLOBIN 15.4 gm/dL (12.0-15.0); MCHC 33.3 g/dL (28.0-37.0); MCV 93.2 fL (80.0-100.0); MPV 11.3 fl. (7.2-11.1); RBC 4.95 mil/uL (4.20-5.00); RDW-CV 14.3 % (10.5-14.5); WBC 13.3 thou/uL (4.0-11.0)
[2019-10-22 10:49] LABS: ANION GAP 9 mmol/L (7-16); BUN 16 mg/dL (7-18); CALCIUM 8.7 mg/dL (8.5-10.1); CHLORIDE 104 mmol/L (98-107); CO2 26 mmol/L (21-32); GLUCOSE 144 mg/dL (70-99); POTASSIUM 4.6 mmol/L (3.5-5.1); SODIUM 139 mmol/L (136-145)
[2019-10-22 10:50] LABS: APTT 25.7 Seconds (25.0-31.3); PROTIME 10.5 Seconds (9.20-11.50)
[2019-10-22 10:54] LABS: ALBUMIN 3.7 g/dL (3.4-5.0); ALKALINE PHOSPHATASE 75 U/L (46-116); CHOLESTEROL 181 mg/dL (<200); HDL CHOLESTEROL 53 mg/dL (>40); LDL CHOLESTEROL 114 mg/dL (<100); SGOT 14 U/L (15-37); SGPT 24 U/L (30-65); TC:HDL 3.4 Ratio (Not establshd); TOTAL BILIRUBIN 0.7 mg/dL (<0.1-1.0); TOTAL PROTEIN 7.7 g/dL (6.4-8.2); TRIGLYCERIDE 73 mg/dL (<150); VLDL 15 mg/dL (<40)
[2019-10-22 10:55] LABS: SERUM ASSESSMENT Clear
[2019-10-22 10:59] VITALS: BP 136/67
[2019-10-22 14:46] VITALS: BP 136/71
[2019-10-22 15:40] VITALS: BP 128/74
[2019-10-22 15:49] VITALS: BP 120/72
--- NOTE | 2019-10-23 06:38 | CARD ---
[address] [address] CARDIAC CATH REPORT Name: OUSMANE HYDE Room: [facility]#: [id number] Admission: 10/22/19 Attend Phys: Bassam Hooper MD Discharge: Date of : 43 Report #: [id number] THIS REPORT FOR: //name// cc: Geraldo Terrell APRN, William R APRN ~ THIS REPORT FOR: //name// APPROVED REPORT Study performed: 10/22/2019 12:55:59 Patient Details Patient Status: Out-Patient Room #: The patient is a 73 year-old female Event Personnel Bassam Hooper Sub Master, Yousif Jiang RTR Sc[employer] COLON THERAPIST Monitor, Cathleen Weaver RN Dandy Tender Procedures Performed Left Heart Cath w/LT VGram [id number] LHCLV Indication Positive stress test, Chest pain Procedure Narrative A 6FR sheath was inserted into the RFA. Coronary angiography was performed using coronary diagnostic catheters. The right coronary system was accessed and visualized with a JR4 catheter. The left coronary system was accessed and visualized with a JL4 catheter. The left ventricle was accessed and visualized with a PIG Tail Catheter catheter. The patient tolerated the procedure well and there were no complications associated with the procedure. Intraoperative Conscious Sedation Sedation start time: 1337 Case end Time: 1345 Fentanyl 25 mcg Fluoro Time: 1.8 minutes Dose: DAP 601 cGycm2 76.6 mGy Contrast Type and Amount: Visipaque 50 ml Coronary Angiography The patient's coronary anatomy is right dominant. [address] [address] CARDIAC CATH REPORT Name: BARRETTOUSMANE Room: [facility]#: [id number] Admission: 10/22/19 Attend Phys: Bassam Hooper MD Discharge: Date of : 43 Report #: [id number] Diagnostic Cath Left Main The left main coronary artery is normal. LAD The left anterior descending coronary artery is mentally 10% plaque proximally. The mid and distal vessel are free of significant disease. Diagonal 1 A high rising first diagonal branch is minimally 10% plaque proximally. Diagonal 2 A moderate size second diagonal branch is normal. Circumflex The circumflex coronary artery is normal in its proximal mid and distal portion. OM1 A high rising large first obtuse marginal branch is normal. OM2 A moderate size second obtuse marginal branch is normal. Right Coronary The right coronary artery is normal in its proximal mid and distal portion. R PDA The right posterior descending artery is normal. RPLV Branched posterior lateral LV branch of the right coronary artery is normal. Left Ventriculography The left ventricle is normal in size with normal contractility. The left ventricular ejection fraction is estimated to be 55-60%. Left ventricular wall motion abnormalities are not present. Conclusion 1. Minimal nonocclusive coronary disease as outlined above. 2. Normal left ventricular end-diastolic pressure. 3. Normal left ventricular systolic function on left ventriculogram. Recommendations 1. Continue current medical management and aggressive risk factor modification. <ELECTRONICALLY SIGNED> By: Bassam Hooper MD, [facility] 10/23/1938 6 Michaesami Hooper MD, FACC /INF
== END | disposition home or self-care (01) ==
LOC: M.CL 09:32 → M.LAB 09:32 → M.CL 11:00
PROVIDERS: Internal Medicine Cardiovascular Disease
DX: R07.9 Chest pain, unspecified (principal); I25.10 Atherosclerotic heart disease of native coronary artery without angina pectoris; R94.39 Abnormal result of other cardiovascular function study; I48.91 Unspecified atrial fibrillation; I11.0 Hypertensive heart disease with heart failure; I50.9 Heart failure, unspecified; Z96.659 Presence of unspecified artificial knee joint; Z98.890 Other specified postprocedural states; Z79.899 Other long term (current) drug therapy; Z98.51 Tubal ligation status; Z79.01 Long term (current) use of anticoagulants; Z91.040 Latex allergy status; Z88.8 Allergy status to other drugs, medicaments and biological substances